=== PATIENT | female | born 1980 | race Caucasian/White ===

== ENCOUNTER 2016-05-12 17:01 | Emergency (ER) | payer OTHER ==
[2016-05-12 17:19] VITALS: BP 156/87
[2016-05-12] MEDS ORDERED: Ondansetron ODT TAB* 4 MG PO ONE (17:35)
--- NOTE | 2016-05-12 17:38 | UC ---
Abdominal Pain Female HPI - HPI Summary HPI Summary: nausea, vomiting and diarrhea for one day--- - History of Current Complaint Chief Complaint: UCGI Stated Complaint: VOMITING, AND DIARRHEA Time Seen by Provider: 05/12/16 17:26 Hx Obtained From: Patient Hx Last Menstrual Period: 05/04/16 ?: No Onset/Duration: Sudden Onset, Lasting Days - 1, Still Present Timing: Constant Severity Initially: Moderate Severity Currently: Moderate Pain Intensity: 4 Pain Scale Used: 0-10 Numeric Location: Diffuse Radiates: No Character: Cramping Aggravating Factor(s): Food Alleviating Factor(s): Nothing Associated Signs and Symptoms: Positive: Nausea, Vomiting, Diarrhea Allergies/Adverse Reactions: Allergies Allergy/AdvReac Type Severity Reaction Status Date / Time Latex Allergy Severe Swelling Verified 05/12/16 17:19 Of Face,Lips,& Throat Venlafaxine [From Effexor] Allergy Intermediate Hives, Verified 05/12/16 17:19 Vomiting Sertraline [From Zoloft] Allergy Mild Hives Verified 05/12/16 17:19 ENVIRONMENTAL Allergy Rash Uncoded 05/26/15 18:29 Home Medications: Home Medications Fluvatriptan* 05/12/16 [History] PMH/Surg Hx/FS Hx/Imm Hx Previously Healthy: No Endocrine History Of: Denies: Diabetes, Thyroid Disease Cardiovascular History Of: Denies: Cardiac Disorders, Hypertension, Pacemaker/ICD, Congestive Heart Failure Respiratory History Of: Reports: COPD - states "something like that" for chronic bronchitis., Asthma, Bronchitis GI/ History Of: Reports: Gastroesophageal Reflux Denies: Ulcer, Renal Disease Psychological History Of: Reports: Anxiety - Surgical History Surgical History: Yes Surgery Procedure, Year, and Place: TUBAL LIGATION, LEEP, NASAL SURGERY AFTER FX ,EAR TUBES x5. T&A, sinus clearing 07/2014, tonsils grew back they were removed 06/26 - Family History Known Family History: Positive: Hypertension Family History: denies family hisotry of migraines, neurological disorders - Social History Occupation: Unemployed Lives: With Family Alcohol Use: None Substance Use Type: None Smoking Status (MU): Current Every Day Smoker Type: Cigarettes Amount Used/How Often: 1/2 PPD Length of Time of Smoking/Using Tobacco: started at age 18 Have You Smoked in the Last Year: Yes Household Exposure Type: Cigarettes - Immunization History Most Recent Influenza Vaccination: 02/2016 Most Recent Tetanus Shot: 2012 Review of Systems Constitutional: Negative Skin: Negative Eyes: Negative ENT: Negative Respiratory: Negative Cardiovascular: Negative Gastrointestinal: Abdominal Pain, Vomiting, Diarrhea Genitourinary: Negative Motor: Negative Neurovascular: Negative Musculoskeletal: Negative Neurological: Negative Psychological: Negative All Other Systems Reviewed And Are Negative: Yes Physical Exam Triage Information Reviewed: Yes Appearance: Ill-Appearing - mild, Pain Distress - mild, Obese Vital Signs: Initial Vital Signs Temp 97.9 F 05/12/16 17:15 Pulse 106 05/12/16 17:15 Resp 24 05/12/16 17:15 BP 156/87 05/12/16 17:15 Pulse Ox 97 05/12/16 17:15 Vital Signs Reviewed: Yes Eye Exam: Normal Eyes: Positive: Conjunctiva Clear ENT Exam: Normal ENT: Positive: Normal ENT inspection, Hearing grossly normal. Negative: Nasal congestion, Nasal drainage, Tonsillar swelling, Tonsillar exudate, Trismus, Muffled/hoarse voice Dental Exam: Other - no teeth Neck exam: Normal Neck: Positive: Supple, Nontender, No Lymphadenopathy Respiratory Exam: Normal Respiratory: Positive: Chest non-tender, Lungs clear, Normal breath sounds, No respiratory distress, No accessory muscle use Cardiovascular Exam: Other Cardiovascular: Positive: No Murmur, Pulses Normal, Brisk Capillary Refill, Tachycardia Abdominal Exam: Other Abdomen Description: Positive: Soft, Other: - genral discomfort. Negative: No Organomegaly, Bruit, CVA Tenderness (R), CVA Tenderness (L), Distended, Guarding , Hernia @, Hepatomegaly, McBurney's Point Tenderness, Peritoneal Signs, Pulsatile Mass, Splenomegaly Bowel Sounds: Positive: Present Musculoskeletal Exam: Normal Musculoskeletal: Positive: Strength Intact, ROM Intact, No Edema Neurological Exam: Normal Neurological: Positive: Alert, Muscle Tone Normal Psychological Exam: Normal Psychological: Positive: Normal Response To Family Skin Exam: Normal Re-Evaluation - Re-Evaluation First Eval Change: Improved - tolerating clear liquids well after zofran--feels better Abd Pain Female Course/Dx - Course Course Of Treatment: zofran clear liquids , advance diet slowly, follow up prn - Differential Dx/Diagnosis Differential Diagnosis: Appendicitis, Diverticulitis, Urinary Tract Infection Provider Diagnoses: gastroenteritis Discharge - Discharge Plan Condition: Stable Disposition: HOME Prescriptions: Ondansetron ODT TAB* [Zofran Odt TAB*] 4 mg PO Q6H PRN #8 tab.odt PRN Reason: vomiting Patient Education Materials: Clear Liquid Diet (ED), Acute Nausea and Vomiting (ED), Acute Diarrhea (ED), Nutrition Tips for Relief of Diarrhea (ED) Referrals: Yakov Amaya MD [Primary Care Provider] - 2 Days
[2016-05-12] MEDS ORDERED: NS 0.9% 1000 ML* 1,000 ML IV ONE (18:19)
== END 2016-05-12 19:34 | disposition home or self-care (01) ==
LOC: UCEAST 17:01
DX: K52.9 Noninfective gastroenteritis and colitis, unspecified (principal); Z88.8 Allergy status to other drugs, medicaments and biological substances; F17.210 Nicotine dependence, cigarettes, uncomplicated
CPT/HCPCS: 81002; 87086; 99201; A9270-GY; G0463

== ENCOUNTER 2017-01-11 07:05 | Emergency (ER) | payer OTHER ==
--- NOTE | 2017-01-11 07:19 | ED ---
Back Pain - HPI Summary HPI Summary: 36 YEAR OLD FEMALE PRESENTS WITH COMPLAINS OF SEVERE MIGRAINE HEADACHE. I WILL SEND HER TO THE ER. - History of Current Complaint Stated Complaint: HEADACHE, BACK SPASMS Time Seen by Provider: 01/11/17 07:18 Hx Last Menstrual Period: 05/04/16 Onset/Duration: Sudden Onset, Lasting Hours Timing: Constant Severity Initially: Moderate Severity Currently: Moderate Pain Scale Used: 0-10 Numeric - 5 Aggravating Symptom(s): Movement - Allergies/Home Medications Allergies/Adverse Reactions: Allergies Allergy/AdvReac Type Severity Reaction Status Date / Time Latex Allergy Severe Swelling Verified 01/11/17 07:20 Of Face,Lips,& Throat Venlafaxine [From Effexor] Allergy Intermediate Hives, Verified 01/11/17 07:20 Vomiting Sertraline [From Zoloft] Allergy Mild Hives Verified 01/11/17 07:20 Gold Allergy Positive Verified 01/11/17 07:20 Allgery Testing Nickel Allergy Positive Verified 01/11/17 07:20 Allergy testing ENVIRONMENTAL Allergy Rash Uncoded 01/11/17 07:20 Home Medications: Home Medications Budesonide/Formote 160/4.5(NF) [Symbicort 160/4.5 (NF)] 1 puff INH BID PRN 01/11 [History Confirmed 01/11/17] Cetirizine* [ZyrTEC 10 MG TAB*] 10 mg PO DAILY 01/11/17 [History Confirmed 01/11] Folic Acid TAB* [Folvite TAB*] 1 mg PO DAILY 01/11/17 [History Confirmed ] LevoCETirizine TAB (NF) [Xyzal TAB (NF)] 5 mg PO DAILY 01/11/17 [History Confirmed 01/11/17] Omeprazole CAP* [Prilosec CAP* 20 MG] 40 mg PO DAILY 01/11/17 [History Confirmed 01/11/17] Ranitidine TAB (NF) [Zantac TAB (NF)] 300 mg PO BID 01/11/17 [History Confirmed 01/11/17] SUMAtriptan TAB* [Imitrex TAB*] 100 mg PO SEE INSTRUCTIONS 01/11/17 [History Confirmed 01/11/17] Simvastatin TAB(NF) [Zocor(NF)] 40 mg PO 1700 01/11/17 [History Confirmed ] hydrOXYzine HCL TAB* [Atarax 25 MG TAB*] 25 mg PO DAILY 01/11/17 [History Confirmed 01/11/17] PMH/Surg Hx/FS Hx/Imm Hx Previously Healthy: Yes Endocrine/Hematology History: Denies: Hx Diabetes, Hx Systemic Lupus Erythematosus, Hx Thyroid Disease Cardiovascular History: Denies: Hx Congestive Heart Failure, Hx Hypertension, Hx Pacemaker/ICD Respiratory History: Reports: Hx Asthma, Hx Chronic Obstructive Pulmonary Disease (COPD) - states "something like that" for chronic bronchitis. GI History: Reports: Other GI Disorders - GERD Denies: Hx Ulcer History: Denies: Hx Dialysis, Hx Renal Disease Musculoskeletal History: Denies: Hx Rheumatoid Arthritis, Hx Scoliosis Sensory History: Denies: Hx Hearing Aid Neurological History: Reports: Hx Headaches, Other Neuro Impairments/Disorders - BIPOLAR, MIGRAINES Psychiatric History: Reports: Hx Anxiety, Hx Substance Abuse - "pot". Denies: Hx Panic Disorder - Cancer History Cancer Type, Location and Year: Cervical CA Hx Chemotherapy: No - Surgical History Surgery Procedure, Year, and Place: TUBAL LIGATION, LEEP, NASAL SURGERY AFTER FX ,EAR TUBES x5. T&A, sinus clearing 07/2014, tonsils grew back they were removed 06/26. LEFT ARM FX RESET 1986 - Immunization History Date of Tetanus Vaccine: UNK Date of Influenza Vaccine: UNK Infectious Disease History: Denies: Hx Clostridium Difficile, Hx Hepatitis, Hx Human Immunodeficiency Virus (HIV), Hx of Known/Suspected MRSA, Hx Shingles, Hx Tuberculosis, Hx Known/ Suspected VRE, Hx Known/Suspected VRSA, History Other Infectious Disease - Family History Known Family History: Positive: Hypertension Family History: denies family hisotry of migraines, neurological disorders - Social History Alcohol Use: None Substance Use Type: Reports: None Smoking Status (MU): Current Every Day Smoker Type: Cigarettes Amount Used/How Often: 1/2 PPD Length of Time of Smoking/Using Tobacco: started at age 18 Have You Smoked in the Last Year: Yes Review of Systems Constitutional: Negative Eyes: Negative ENT: Negative Cardiovascular: Negative Respiratory: Negative Gastrointestinal: Negative Genitourinary: Negative Musculoskeletal: Negative Skin: Negative Positive: Headache Psychological: Normal All Other Systems Reviewed And Are Negative: Yes Physical Exam Triage Information Reviewed: Yes Vital Signs Reviewed: Yes Appearance: Positive: Well-Appearing Skin: Positive: Warm Head/Face: Positive: Normal Head/Face Inspection Eyes: Positive: Normal ENT: Positive: Normal ENT inspection Neck: Positive: Supple Respiratory/Lung Sounds: Positive: Clear to Auscultation Cardiovascular: Positive: Normal Abdomen Description: Positive: Nontender Bowel Sounds: Positive: Present Musculoskeletal: Positive: Normal Neurological: Positive: Normal Back Pain Course/Dx - Diagnoses Provider Diagnoses: Back muscle spasm, Headache Discharge - Discharge Plan Condition: Stable Disposition: HOME Patient Education Materials: Migraine Headache (ED), Acute Headache (ED) Referrals: Yakov Amaya MD [Primary Care Provider] - Additional Instructions: PLEASE GO TO ER FOR INTRACTABLE MIGRAINE.
[2017-01-11 07:30] VITALS: BP 128/68
== END 2017-01-11 07:58 | disposition home or self-care (01) ==
LOC: UCCORT 07:05
DX: G43.909 Migraine, unspecified, not intractable, without status migrainosus (principal); M62.830 Muscle spasm of back; J44.9 Chronic obstructive pulmonary disease, unspecified; K21.9 Gastro-esophageal reflux disease without esophagitis; F41.9 Anxiety disorder, unspecified; F12.90 Cannabis use, unspecified, uncomplicated; F17.210 Nicotine dependence, cigarettes, uncomplicated; Z91.040 Latex allergy status
CPT/HCPCS: 99212; G0463

== ENCOUNTER 2017-01-11 09:17 | Emergency (ER) | payer OTHER ==
[2017-01-11] MEDS ORDERED: NS 0.9% 1000 ML* 1,000 ML IV ONE (09:38)
--- NOTE | 2017-01-11 09:48 | ED ---
Headache - HPI Summary HPI Summary: Pt here w/ [facility] x 1 month. H/o migraines and feels the same but lasting longer than usual. Started as pain in posterior neck, head. Associated sx of nausea w/ vomiting, photosensitivity, and worsening of her chronic LBP (feels muscle spasms). Continuously throbbing and painful headache despite trying sumatriptan and tylenol. Past few days she also reports ST, otalgia, sneezing. Has allergies and myringotomy - no otorrhea to report. Takes cetirizine and singulair daily for allergies - reports these feel like allergies. Also has a baseline cough - smokes and gets bronchitis routinely. Denies asthma, COPD. Used her ventolin HFA this morning with good relief. Has a nebulizer at home she uses as needed also. No complaints today of SOB, difficulty breathing, CP or wheezing. PCOS and sexually active w/o protection. Will asses for . - History Of Current Complaint Chief Complaint: EDHeadache Stated Complaint: HEADACHE COMMING FROM [facility] Time Seen by Provider: 01/11/17 09:26 Hx Obtained From: Patient Hx Last Menstrual Period: 05/04/16 - Allergies/Home Medications Allergies/Adverse Reactions: Allergies Allergy/AdvReac Type Severity Reaction Status Date / Time Latex Allergy Severe Swelling Verified 01/11/17 07:20 Of Face,Lips,& Throat Venlafaxine [From Effexor] Allergy Intermediate Hives, Verified 01/11/17 07:20 Vomiting Sertraline [From Zoloft] Allergy Mild Hives Verified 01/11/17 07:20 Gold Allergy Positive Verified 01/11/17 07:20 Allgery Testing Nickel Allergy Positive Verified 01/11/17 07:20 Allergy testing ENVIRONMENTAL Allergy Rash Uncoded 01/11/17 07:20 PMH/Surg Hx/FS Hx/Imm Hx Previously Healthy: Yes Endocrine/Hematology History: Denies: Hx Anticoagulant Therapy, Hx Blood Disorders, Hx Diabetes, Hx Systemic Lupus Erythematosus, Hx Thyroid Disease, Hx Unexplained Bleeding Cardiovascular History: Denies: Hx Congestive Heart Failure, Hx Hypertension, Hx Pacemaker/ICD Respiratory History: Reports: Hx Asthma, Hx Chronic Obstructive Pulmonary Disease (COPD) - states "something like that" for chronic bronchitis., Hx Seasonal Allergies GI History: Reports: Hx Gastroesophageal Reflux Disease Denies: Hx Ulcer History: Denies: Hx Dialysis, Hx Renal Disease Musculoskeletal History: Denies: Hx Rheumatoid Arthritis, Hx Scoliosis Sensory History: Denies: Hx Hearing Aid Neurological History: Reports: Hx Migraine - sumitriptan per pt, Other Neuro Impairments/Disorders - BIPOLAR, MIGRAINES Psychiatric History: Reports: Hx Anxiety, Hx Substance Abuse - "pot". Denies: Hx Panic Disorder - Cancer History Cancer Type, Location and Year: Cervical CA Hx Chemotherapy: No - Surgical History Surgery Procedure, Year, and Place: TUBAL LIGATION, LEEP, NASAL SURGERY AFTER FX ,EAR TUBES x5. T&A, sinus clearing 07/2014, tonsils grew back they were removed 06/26. LEFT ARM FX RESET 1986 - Immunization History Date of Tetanus Vaccine: UNK Date of Influenza Vaccine: UNK Infectious Disease History: No Infectious Disease History: Denies: Hx Clostridium Difficile, Hx Hepatitis, Hx Human Immunodeficiency Virus (HIV), Hx of Known/Suspected MRSA, Hx Shingles, Hx Tuberculosis, Hx Known/ Suspected VRE, Hx Known/Suspected VRSA, History Other Infectious Disease, Traveled Outside the [place] in Last 30 Days - Family History Known Family History: Positive: Hypertension Family History: denies family hisotry of migraines, neurological disorders - Social History Alcohol Use: None Substance Use Type: Reports: None Smoking Status (MU): Current Every Day Smoker Type: Cigarettes Amount Used/How Often: 1/2 PPD Length of Time of Smoking/Using Tobacco: started at age 18 Have You Smoked in the Last Year: Yes Review of Systems Constitutional: Negative Positive: Fatigue - SLEPT ALL DAY YESTERDAY. Negative: Fever, Chills Positive: Photophobia. Negative: Blurred Vision, Diplopia Positive: Sore Throat, Ear Ache, Other - NASAL CONGESTION Cardiovascular: Negative Negative: Chest Pain Positive: Cough - CHRONIC. Negative: Shortness Of Breath Positive: Vomiting, Nausea. Negative: Abdominal Pain, Diarrhea Negative: burning, dysuria, discharge, frequency, flank pain, hematuria, incontinence, pain, urgency Musculoskeletal: Other - SEE HPI Skin: Negative Positive: Headache - SEE hpi. Negative: Weakness, Paresthesia, Numbness, Syncope, Slurred Speech Positive: Anxious All Other Systems Reviewed And Are Negative: Yes Physical Exam Triage Information Reviewed: Yes Vital Signs On Initial Exam: Initial Vitals Temp Pulse Resp BP Pulse Ox 97.8 F 89 16 139/92 98 01/11/17 09:18 01/11/17 09:18 01/11/17 09:18 01/11/17 09:18 01/11/17 09:18 Vital Signs Reviewed: Yes Appearance: Positive: Pain Distress - lying on Rt side on stretcher in dark upon entrance; alert and awake; cigarette odor in room - 2 friends w/ her; reacts abruptly to hide face when lights are turned on; pleasant and cooperative but appears frustrated with pain, Obese Skin: Positive: Warm, Dry Head/Face: Positive: Normal Head/Face Inspection - NTTP Eyes: Positive: EOMI, [place] - photosensitive, Conjunctiva Clear. Negative: Conjunctiva Inflammed, Discharge ENT: Positive: Hearing grossly normal, Pharynx normal, Nasal congestion, TMs normal - blue tubes present B/L - no otorrhea. Negative: Pharyngeal erythema, Nasal drainage, Tonsillar swelling, Tonsillar exudate, Trismus, Muffled/hoarse voice Neck: Positive: Supple, No Lymphadenopathy, Tenderness @ - paracervical mm TTP Respiratory/Lung Sounds: Positive: Breath Sounds Present, Wheezes - throughout. Negative: Rales, Rhonchi, Stridor, Unable to speak in full sentences Cardiovascular: Positive: Normal, RRR, S1, S2. Negative: Murmur, Rub Abdomen Description: Positive: Nontender, No Organomegaly, Soft Bowel Sounds: Positive: Present Musculoskeletal: Positive: Normal, Strength/ROM Intact Neurological: Positive: Normal, Sensory/Motor Intact, Alert, Oriented to Person Place, Time, CN Intact II-III Psychiatric: Positive: Normal Diagnostics - Vital Signs Vital Signs Temp Pulse Resp BP Pulse Ox 01/11/17 09:18 97.8 F 89 16 139/92 98 - Laboratory Result Diagrams: 01/11/17 10:47 01/11/17 10:47 Lab Statement: Any lab studies that have been ordered have been reviewed, and results considered in the medical decision making process. Re-Evaluation - Re-Evaluation First Eval Change: Improved - nausea resolved - pain improving but still present - requesting something additional for pain - would like to try diazepam and then go home Headache Course/Dx - Diagnoses Provider Diagnoses: Migraine Discharge - Discharge Plan Condition: Stable Disposition: HOME Patient Education Materials: Migraine Headache (ED) Referrals: Yakov Amaya MD [Primary Care Provider] - Additional Instructions: Rest and stay hydrated - water, chicken broth, gatorade, etc Reduce or quit smoking as tolerated to aid in recovery of migraine Keep a head diary and bring this to PCP - record hours of sleep, stressful events, caffeine intake (ie., coffee, tea, soda, iced tea, chocolate), alcohol intake, cigarette intake, water intake, exposure to chemicals such as cloud administrator, perfumes, etc - this will help you and your PCP identify triggers Follow-up with PCP to discuss migraine prevention - you may address lifestyle changes as well as potential medications for prevention
[2017-01-11 11:02] LABS: Hematocrit 33 % (35-47); Hemoglobin 11.3 g/dl (12.0-16.0); Mean Corpuscular HGB Conc 34 g/dl (31-36); Mean Corpuscular Hemoglobin 30 pg (27-31); Mean Corpuscular Volume 89 fL (80-97); Mean Platelet Volume 9 um3 (7.4-10.4); Red Blood Count 3.76 10^6/ul (4.0-5.4); Red Cell Distribution Width 15 % (10.5-15); White Blood Count 8.3 10^3/ul (3.5-10.8)
[2017-01-11 11:23] LABS: ALT 18 U/L (7-52); AST 16 U/L (13-39); Albumin 3.8 g/dL (3.2-5.2); Alkaline Phosphatase 77 U/L (34-104); Anion Gap 3 mmol/L (2-11); Blood Urea Nitrogen 12 mg/dL (6-24); CO2 Carbon Dioxide 26 mmol/L (22-32); Calcium 9.1 mg/dL (8.6-10.3); Chloride 109 mmol/L (101-111); EGFR African American 139.1 (>60); EGFR Non-African American 108.2 (>60); Globulin 2.5 g/dL (2-4); Glucose 99 mg/dL (70-100); Potassium 4.1 mmol/L (3.5-5.0); Sodium 138 mmol/L (133-145); Total Protein 6.3 g/dL (6.4-8.9)
[2017-01-11] MEDS ORDERED: Ondansetron INJ* 2 MG/ML VIAL IV ONE (11:30)
[2017-01-11] MEDS ORDERED: diPHENhydraMINE IV* 50 MG/ML 1 ml VIAL (BENADRYL) IV ONE (11:30)
[2017-01-11] MEDS ORDERED: Ketorolac INJ* 30 MG/ML 1 ML VIAL IV PUSH ONE (11:30)
[2017-01-11 12:05] LABS: Mono Internal Control QC Line Present
[2017-01-11] MEDS ORDERED: Diazepam SYRINGE* 5 MG/ML SYRINGE IV ONE (13:00)
[2017-01-11 14:42] VITALS: BP 152/84
== END 2017-01-11 14:42 | disposition home or self-care (01) ==
LOC: ED 09:17
DX: G43.909 Migraine, unspecified, not intractable, without status migrainosus (principal); F17.200 Nicotine dependence, unspecified, uncomplicated; F31.9 Bipolar disorder, unspecified; K21.9 Gastro-esophageal reflux disease without esophagitis
CPT/HCPCS: 36415; 80053; 83735; 84443; 84702; 85025; 86308; 87651; 99282; J1200; J1885; J2405; J3360

== ENCOUNTER 2017-03-23 08:39 | Day surgery (SDC) | payer OTHER ==
[~2017-03-23 08:39] MED LIST: Acetaminophen TAB* 325 MG PO ONE; Buffered Lidocaine 0.9% SYRIN* 5 ML/SYR SYRINGE INTRADERM ONE; Famotidine IV* 10 MG/ML 2 ML (20 mg) IV ONE; Ketorolac INJ* 30 MG/ML 1 ML VIAL ONE; Lidocaine 2% PF * 5 ML VIAL ONE; Midazolam* 1 MG/ML 2 ML VIAL (2 MG) ONE; Ondansetron INJ* 2 MG/ML VIAL ONE; Propofol* 10 MG/ML 20 ML BTL IV PUSH ONE; fentaNYL* 50 MCG/ML 2 ML VIAL (100 MCG VIAL) ONE
[2017-03-23] MEDS ORDERED: Acetaminophen TAB* 325 MG ONE (08:52)
[2017-03-23] MEDS ORDERED: Famotidine IV* 10 MG/ML 2 ML (20 mg) ONE (08:52)
[2017-03-23] MEDS ORDERED: ceFAZolin 2 GM PREMIX (*) 2 GM/50 ML BAG IVPB ONE (08:52)
[2017-03-23] MEDS ORDERED: Buffered Lidocaine 0.9% SYRIN* 5 ML/SYR SYRINGE ONE (08:53)
[2017-03-23] MEDS ORDERED: Ibuprofen TAB* 600 MG PO PRN (10:09)
[2017-03-23] MEDS ORDERED: Levalbuterol 0.63MG/3ML NEB* UNIT OF USE INH PRN (10:09)
[2017-03-23] MEDS ORDERED: oxyCODONE TAB* 5 MG TAB PO PRN (10:09)
[2017-03-23] MEDS ORDERED: HYDROmorphone INJ* 1 MG/ML CARPUJECT SYRINGE IV PRN (10:09)
[2017-03-23] MEDS ORDERED: Scopolamine 1.5 mg* PATCH TRANSDERM PRN (10:09)
[2017-03-23] MEDS ORDERED: HYDROcodone/ACETAMIN 5-325 MG* 1 TAB PO PRN (10:09)
[2017-03-23] MEDS ORDERED: Nalbuphine* 20 MG/ML 1 ML VIAL IV PRN (10:09)
[2017-03-23] MEDS ORDERED: Bupivacaine 0.25% SDV* 30 ML ONE (10:11)
[2017-03-23] MEDS ORDERED: Lidocaine 1% MPF wEPI 200,000* 30 ML SDV ONE (10:11)
[2017-03-23] MEDS ORDERED: Levalbuterol HFA INHALER* 1 PUFF MDI ONE (11:25)
[2017-03-23] MEDS ORDERED: Phenylephrine IV* 40 MCG/ML 10 ML SYRINGE ONE (11:52)
[2017-03-23] MEDS ORDERED: fentaNYL* 50 MCG/ML 2 ML VIAL (100 MCG VIAL) ONE ×3 (12:01→13:55)
[2017-03-23] MEDS ORDERED: hydrALAZINE IV* 20 MG/ML VIAL ONE (13:34)
[2017-03-23] MEDS: fentaNYL* 50 MCG/ML 2 ML VIAL (100 MCG VIAL) IV PRN ×2 (14:00→14:15)
[2017-03-23] MEDS ORDERED: oxyCODONE/Acetamin 5/325 MG* TAB ONE (14:51)
[2017-03-23] MEDS: oxyCODONE/Acetamin 5/325 MG* TAB PO PRN ×2 (14:51→14:52)
[2017-03-23 16:08] VITALS: BP 126/72
--- NOTE | 2017-03-24 09:49 | OP ---
DATE OF OPERATION: 03/23/17 - [facility] DATE OF : 84 SURGEON: Abimael Weir MD DISCHARGE PLANNER: CRYSTAL Sotuh ANESTHESIOLOGIST: Dr. Paulette Wright. ANESTHESIA: General. PRE-OP DIAGNOSES: 1. Left dorsal wrist ganglion cyst. 2. Left wrist De Quervain's tenosynovitis. 3. Left carpal tunnel syndrome. 4. Left wrist pain, potential scapholunate interosseous ligament injury. POST-OP DIAGNOSES: 1. Left dorsal wrist ganglion cyst. 2. Left wrist De Quervain's tenosynovitis. 3. Left carpal tunnel syndrome. 4. Left wrist synovitis with an intact scapholunate interosseous ligament. OPERATIVE PROCEDURE: 1. Left wrist arthroscopy with synovectomy 2. Left DeQuervain's release 3. Left carpal tunnel release 4. Left dorsal wrist ganglion cyst excision. INDICATIONS: I have been following Martina now for quite some time. She has had persistent pain. She has had injections. She has had extensive nonoperative treatment. She has a cyst on MRI. Her clinical exam is very consistent with De Quervain's tenosynovitis. She had electrodiagnostic studies which were negative; however, she continues to complain of clinical symptoms of carpal tunnel syndrome involving the distal radial three digits and not the ulnar digits. On MRI, there was some questionable insufficiency of the scapholunate interosseous ligament. I talked to her that really the only thing left to do would be to scope the wrist and do a synovectomy and assess arthroscopically the scapholunate interosseous ligament. I would also excise the dorsal wrist ganglion cyst and release the tendons and do the carpal tunnel release at the same time. She very much wanted to proceed. ESTIMATED BLOOD LOSS: 5 mL. COMPLICATIONS: None. FINDINGS: See above and below. DESCRIPTION OF PROCEDURE: Martina was seen in the preoperative holding area The correct site and side of the procedure were identified. We came back to the operating room. The arm was prepped and draped in the usual fashion. A time- out was performed. I began by placing the arm in the [employer] [place]. I was then going to commence the arthroscopy; however, I did not have the right camera, so I went ahead and took the arm out of the arthroscopy tower. It was exsanguinated with the Esmarch and then the tourniquet inflated to 250 mmHg. I then made a 2 to 3 cm incision in the standard location for an ulnar carpal tunnel release; dissection was carried down. Ulnar fascia was split longitudinally. The transverse carpal ligament was released just off the radial aspect of the hamate. The release was completed distally and proximally with the tenotomy scissors. Once there was absolutely no compression on the nerve, I went ahead and irrigated out the wound. The skin was closed with 3-0 Monocryl suture. I then made a 2 cm transverse incision just proximal to the radial styloid. Full- thickness flaps were raised off of the first dorsal compartment tendon sheath. Sheath was incised along the dorsal aspect of the first dorsal compartment. The release was extended proximally and distally with the tenotomy scissor taking care to protect the radial sensory nerve. Once the tendons were completely decompressed and the sheath was completely released, I irrigated out that wound and the skin was closed with a 3-0 Monocryl subcuticular suture. I then made a lazy-S incision over the dorsum of the wrist. Dissection was carried down. I came in the interval between the second and fourth extensor tendons. The dorsal wrist ganglion was identified. It was dissected back to the dorsal wrist capsule, and margins were developed and it was amputated just at the level of the wrist capsule. It was coming off of the dorsal scapholunate joint. The stock of the cyst was cauterized with a Bovie. At this point we had the camera, so I placed her back in the traction tower. A 3-4 portal was developed with the 11 blade followed by the mosquito, and then the blunt trocar was placed. Camera was placed in 3-4 portal. The 4-5 portal and then the 6-R portals were developed in a similar fashion. Instruments were placed in these two portals. There was quite a bit of synovitis. I went ahead and took the 2.5 mm shaver and excised all of that dorsal synovitis. I used the probe and examined the TFCC. It was thin, but there was no full-thickness tear of the TFCC. The cartilage surface was all intact. I then developed a radial and ulnar mid carpal portals through my dorsal wrist ganglion cyst incision. It did not look like there was instability in the scapholunate or the triquetral joints. I, therefore, withdrew the camera. The cyst incision was irrigated out. All the wounds were closed with 3-0 Monocryl suture. The wounds were infiltrated with Marcaine. They were dressed with Xeroform, 4x4, sterile Webril, and a cockup wrist splint was applied. The tourniquet was deflated and the hand pinked up immediately. She was taken to the recovery room in stable condition. [id number]/[facility] #: [id number] MARYANN
[2017-03-26] MEDS ORDERED: Scopolamine PATCH Remove* 1 NOTE MISC PATCH OFF ONE (10:10)
== END 2017-03-23 15:25 | disposition home or self-care (01) ==
LOC: OR 08:39
PROVIDERS: ATTEND Orthopaedic Surgery Hand Surgery
DX: M67.432 Ganglion, left wrist (principal); M65.4 Radial styloid tenosynovitis [de Quervain]; G56.02 Carpal tunnel syndrome, left upper limb; M65.832 Other synovitis and tenosynovitis, left forearm; J44.9 Chronic obstructive pulmonary disease, unspecified; F17.200 Nicotine dependence, unspecified, uncomplicated; K21.9 Gastro-esophageal reflux disease without esophagitis; E11.9 Type 2 diabetes mellitus without complications; Z79.84 Long term (current) use of oral hypoglycemic drugs; G43.909 Migraine, unspecified, not intractable, without status migrainosus; F31.9 Bipolar disorder, unspecified
CPT/HCPCS: 88304; A9270-GY; J0360; J0690; J1885; J2001; J2250; J2405; J2704; J3010

== ENCOUNTER 2017-06-24 07:36 | Emergency (ER) | payer OTHER ==
[2017-06-24 08:58] VITALS: BP 133/77
--- NOTE | 2017-06-24 09:28 | UC ---
Respiratory Complaint HPI - HPI Summary HPI Summary: Cough and congestion for about two days. Both housemates have similar symptoms. SHe has hx of asthma. NO known fever. - History of Current Complaint Chief Complaint: UCRespiratory Stated Complaint: COUGH CHILLS/SWEATS Time Seen by Provider: 06/24/17 08:54 Hx Obtained From: Patient Hx Last Menstrual Period: 06/24/17 Onset/Duration: Gradual Onset, Lasting Days Timing: Constant Severity Initially: Moderate Severity Currently: Moderate Pain Intensity: 9 Character: Cough: Nonproductive Aggravating Factors: Deep Breaths, Recumbent Position Alleviating Factors: Upright Position, Spontaneous Resolution Associated Signs And Symptoms: Positive: Chills, Wheezing, URI, Nasal Congestion , Hoarseness - Allergies/Home Medications Allergies/Adverse Reactions: Allergies Allergy/AdvReac Type Severity Reaction Status Date / Time MS Latex [Latex] Allergy Severe Swelling Verified 06/24/17 08:48 Of Face,Lips,& Throat MS Venlafaxine [From Effexor] Allergy Intermediate Hives, Verified 06/24/17 08: 48 Vomiting MS Sertraline [From Zoloft] Allergy Mild Hives Verified 06/24/17 08:48 MS Gold [Gold] Allergy Positive Verified 06/24/17 08:48 Allgery Testing MS Nickel [Nickel] Allergy Positive Verified 06/24/17 08:48 Allergy testing ENVIRONMENTAL Allergy Rash Uncoded 06/24/17 08:48 PMH/Surg Hx/FS Hx/Imm Hx Previously Healthy: No - asthma, PCOS Other History Of: Negative For: Anticoagulant Therapy - Surgical History Surgical History: Yes Surgery Procedure, Year, and Place: TUBAL LIGATION, LEEP, NASAL SURGERY AFTER FX ,EAR TUBES x5. T&A, sinus clearing 07/2014, tonsils grew back they were removed 06/26. LEFT ARM FX RESET 1986. L wrist fx. 3 D&C'S - Family History Known Family History: Positive: Hypertension Family History: denies family hisotry of migraines, neurological disorders - Social History Lives: With Family Alcohol Use: None Substance Use Type: None Smoking Status (MU): Heavy Every Day Tobacco Smoker Type: Cigarettes Amount Used/How Often: 1/2 PPD X 13 YEARS Length of Time of Smoking/Using Tobacco: started at age 18 Have You Smoked in the Last Year: Yes Household Exposure Type: Cigarettes - Immunization History Most Recent Influenza Vaccination: Not the 2016/2017 Season Most Recent Tetanus Shot: 2012 Review of Systems ENT: Sinus Congestion Respiratory: Cough All Other Systems Reviewed And Are Negative: Yes Physical Exam Triage Information Reviewed: Yes Appearance: Well-Appearing, No Pain Distress, Well-Nourished Vital Signs: Initial Vital Signs Temp 99.5 F 06/24/17 08:51 Pulse 101 06/24/17 08:51 Resp 18 06/24/17 08:51 BP 133/77 06/24/17 08:51 Pulse Ox 99 06/24/17 08:51 Vital Signs Reviewed: Yes Eye Exam: Normal Eyes: Positive: Conjunctiva Clear ENT: Positive: Normal ENT inspection, Pharynx normal, Nasal congestion, TMs normal, Uvula midline. Negative: TM bulging, TM dull, TM red, Tonsillar swelling, Tonsillar exudate, Trismus, Muffled voice, Hoarse voice, Dental tenderness Neck: Positive: Supple, Nontender, No Lymphadenopathy. Negative: Nuchal Rigidity Respiratory: Positive: No respiratory distress, No accessory muscle use, Rhonchi , Wheezing. Negative: Respiratory distress, Decreased breath sounds, Accessory muscle use, Crackles Cardiovascular: Positive: No Murmur, Pulses Normal. Negative: Tachycardia Abdomen Description: Positive: No Organomegaly, Soft. Negative: Distended, Guarding Musculoskeletal: Positive: ROM Intact, No Edema Neurological: Positive: Alert, Muscle Tone Normal. Negative: Fatigued Psychological: Positive: Age Appropriate Behavior Skin: Negative: rashes UC Diagnostic Evaluation - Laboratory O2 Sat by Pulse Oximetry: 99 Respiratory Course/Dx - Course Course Of Treatment: NO respirtory distress besides dry cough. She is talking in full sentences. THere is wheezing but no clinical signs of pneumonia two days into this URI. She has asthma and has wheezing. We will try prednisone. - Differential Dx/Diagnosis Provider Diagnoses: viral URI Discharge - Discharge Plan Condition: Good Disposition: HOME Prescriptions: guaiFENesin/CODIEN 100MG-10MG* [Robitussin AC 100Mg-10Mg*] 10 ml PO TID PRN # 100 udc MDD 30 PRN Reason: Cough Oseltamivir CAP* [Tamiflu CAP*] 75 mg PO BID #10 cap predniSONE TAB* [Deltasone TAB*] 40 mg PO DAILY #10 tab Patient Education Materials: Influenza (ED) Referrals: Yakov Amaya MD [Primary Care Provider] -
== END 2017-06-24 10:21 | disposition home or self-care (01) ==
LOC: UCCORT 07:36
DX: J06.9 Acute upper respiratory infection, unspecified (principal); F17.210 Nicotine dependence, cigarettes, uncomplicated; J45.909 Unspecified asthma, uncomplicated
CPT/HCPCS: 87502; 99212; G0463

== ENCOUNTER 2017-07-06 14:38 | Emergency (ER) | payer OTHER ==
[2017-07-06 15:11] VITALS: BP 111/69
[2017-07-06] MEDS ORDERED: Acetaminophen TAB* 325 MG PO ONE (15:31)
--- NOTE | 2017-07-06 16:03 | UC ---
FLU HPI - HPI Summary HPI Summary: Pt c/o continued fever, nasal congestion cough, sinus pressure and pain X 2 weeks. Pt was diagnosed 2 weeks ago with flu. - History of Current Complaint Chief Complaint: UCGeneralIllness Stated Complaint: COUGH SORE THROAT DIARRHEA Time Seen by Provider: 07/06/17 15:18 Hx Obtained From: Patient Hx Last Menstrual Period: 06/24/17 ?: No Onset/Duration: Gradual Onset, Lasting Weeks, Still Present, Worse Since - onset Severity Currently: Moderate Severity Initially: Mild Pain Intensity: 9 Associated Signs & Symptoms: Positive: Fever, Cough, Nasal Congestion Related Hx: Possible Flu/Infectious Exposure - Risk Factors Influenza Risk Factors: Negative - Allergy/Home Medications Allergies/Adverse Reactions: Allergies Allergy/AdvReac Type Severity Reaction Status Date / Time latex Allergy Swelling Verified 07/06/17 15:27 Of Face,Lips,& Throat nickel Allergy POSITIVE Verified 07/06/17 15:27 ALLERGY TESTING sertraline Allergy Hives Verified 07/06/17 15:27 venlafaxine Allergy Hives, Verified 07/06/17 15:27 Vomiting ENVIRONMENTAL Allergy Rash Uncoded 07/06/17 15:27 GOLD Allergy TESTED Uncoded 07/06/17 15:27 POSITIVE PMH/Surg Hx/FS Hx/Imm Hx Previously Healthy: Yes Other History Of: Negative For: Anticoagulant Therapy - Surgical History Surgical History: Yes Surgery Procedure, Year, and Place: TUBAL LIGATION, LEEP, NASAL SURGERY AFTER FX ,EAR TUBES x5. T&A, sinus clearing 07/2014, tonsils grew back they were removed 06/26. LEFT ARM FX RESET 1986. L wrist fx. 3 D&C'S - Family History Known Family History: Positive: Hypertension Family History: denies family hisotry of migraines, neurological disorders - Social History Occupation: Unemployed Lives: With Family Alcohol Use: None Substance Use Type: None Smoking Status (MU): Heavy Every Day Tobacco Smoker Type: Cigarettes Amount Used/How Often: 1/2 PPD X 13 YEARS Length of Time of Smoking/Using Tobacco: started at age 18 Have You Smoked in the Last Year: Yes Household Exposure Type: Cigarettes - Immunization History Most Recent Influenza Vaccination: Not the 2017/2017 Season Most Recent Tetanus Shot: 2012 Review of Systems Constitutional: Fever, Chills, Fatigue Skin: Negative Eyes: Negative ENT: Sinus Congestion, Sinus Pain/Tenderness Respiratory: Cough Cardiovascular: Negative, Palpitations Gastrointestinal: Negative Genitourinary: Negative Motor: Negative Neurovascular: Negative Musculoskeletal: Negative Neurological: Headache Psychological: Negative Is Patient Immunocompromised?: No All Other Systems Reviewed And Are Negative: Yes Physical Exam Triage Information Reviewed: Yes Appearance: Ill-Appearing Vital Signs: Initial Vital Signs Temp 101.1 F 07/06/17 15:04 Pulse 86 07/06/17 15:04 Resp 20 07/06/17 15:04 BP 111/69 07/06/17 15:04 Pulse Ox 100 07/06/17 15:04 Vital Signs Reviewed: Yes Eye Exam: Normal ENT Exam: Other ENT: Positive: Nasal congestion, Sinus tenderness Dental: Positive: Other: - all teeth pulled, Neck exam: Normal Respiratory Exam: Normal Cardiovascular Exam: Normal Musculoskeletal Exam: Normal Neurological Exam: Normal Psychological Exam: Normal Skin Exam: Normal Flu Course/Dx - Differential Dx/Diagnosis Differential Diagnosis/HQI/PQRI: Influenza, Other - sinusitis Provider Diagnoses: sinusitis Discharge - Discharge Plan Condition: Stable Disposition: HOME Prescriptions: Amoxicillin PO (*) [Amoxicillin 875 MG (*)] 875 mg PO Q12H #20 tab Patient Education Materials: Sinusitis (ED) Referrals: Yakov Amaya MD [Primary Care Provider] - If Needed
== END 2017-07-06 16:04 | disposition home or self-care (01) ==
LOC: UCCORT 14:38
DX: J32.9 Chronic sinusitis, unspecified (principal); Z91.040 Latex allergy status; Z88.8 Allergy status to other drugs, medicaments and biological substances; Z91.048 Other nonmedicinal substance allergy status; F17.210 Nicotine dependence, cigarettes, uncomplicated
CPT/HCPCS: 99212; A9270-GY; G0463

== ENCOUNTER 2017-08-22 16:15 | Emergency (ER) | payer OTHER ==
[2017-08-22] MEDS ORDERED: predniSONE TAB* 20 MG PO ONE (17:42)
[2017-08-22] MEDS ORDERED: Albuterol/Ipratropium NEB.SOL* Albuterol 2.5 MG/Ipratropium 0.5 MG 3 ML INH ONE (17:43)
[2017-08-22 18:12] VITALS: BP 133/68
--- NOTE | 2017-08-22 18:20 | UC ---
Respiratory Complaint HPI - HPI Summary HPI Summary: c/o SOB and wheezing with chills and feeling hot and cold and facial pain with nasal congestion for several days. She continues to smoke about 10 cig a day and has quit "a million times". She has appt with PCP on 08-25-17. - History of Current Complaint Chief Complaint: UCGeneralIllness Stated Complaint: BODY ACHES/CHILLS Time Seen by Provider: 08/22/17 16:44 Hx Obtained From: Patient Hx Last Menstrual Period: MIRENA ?: No Onset/Duration: Gradual Onset, Lasting Days Severity Initially: Moderate Severity Currently: Severe Pain Intensity: 9 Alleviating Factors: Nothing Associated Signs And Symptoms: Positive: Wheezing, Nasal Congestion, Sinus Discomfort - Risk Factors Pulmonary Embolism Risk Factors: Negative Cardiac Risk Factors: Smoking Tuberculosis Risk Factors: Negative - Allergies/Home Medications Allergies/Adverse Reactions: Allergies Allergy/AdvReac Type Severity Reaction Status Date / Time latex Allergy Swelling Verified 08/22/17 16:35 Of Face,Lips,& Throat nickel Allergy POSITIVE Verified 08/22/17 16:35 ALLERGY TESTING sertraline Allergy Hives Verified 08/22/17 16:35 venlafaxine Allergy Hives, Verified 08/22/17 16:35 Vomiting ENVIRONMENTAL Allergy Rash Uncoded 08/22/17 16:35 GOLD Allergy TESTED Uncoded 08/22/17 16:35 POSITIVE Home Medications: Home Medications Guaifen/Phenyleph/Acetaminophn [Mucinex Fast-Max Cold & S] 2 tab PO DAILY PRN [History Confirmed 08/22/17] Levonorgestrel (Iud) [Mirena IUD] 20 mcg IU SEE INSTRUCTIONS 08/22/17 [History Confirmed 08/22/17] PMH/Surg Hx/FS Hx/Imm Hx Previously Healthy: Yes Respiratory History: Asthma Psychological History: Anxiety Other History Of: Negative For: Anticoagulant Therapy - Surgical History Surgical History: Yes Surgery Procedure, Year, and Place: TUBAL LIGATION, LEEP, NASAL SURGERY AFTER FX ,EAR TUBES x5. T&A, sinus clearing 07/2014, tonsils grew back they were removed 06/26. LEFT ARM FX RESET 1986. L wrist fx. 3 D&C'S - Family History Known Family History: Positive: Hypertension Family History: denies family hisotry of migraines, neurological disorders - Social History Alcohol Use: None Substance Use Type: None Smoking Status (MU): Heavy Every Day Tobacco Smoker Type: Cigarettes Amount Used/How Often: 1/2 PPD X 19 YEARS Length of Time of Smoking/Using Tobacco: started at age 18 Have You Smoked in the Last Year: Yes Household Exposure Type: Cigarettes - Immunization History Most Recent Influenza Vaccination: Not the 2016/2017 Season Most Recent Tetanus Shot: 2012 Review of Systems Constitutional: Chills, Fatigue ENT: Nasal Discharge, Sinus Congestion, Sinus Pain/Tenderness Respiratory: Shortness Of Breath, Cough Gastrointestinal: Nausea All Other Systems Reviewed And Are Negative: Yes Physical Exam Triage Information Reviewed: Yes Appearance: Ill-Appearing, Obese Vital Signs: Initial Vital Signs Temp 98.8 F 08/22/17 16:37 Pulse 99 08/22/17 16:37 Resp 22 08/22/17 16:37 BP 130/80 08/22/17 16:37 Pulse Ox 98 08/22/17 16:37 Vital Signs Reviewed: Yes Eyes: Positive: Conjunctiva Clear ENT: Positive: Pharyngeal erythema, Nasal congestion, Nasal drainage, Sinus tenderness Neck: Positive: Supple, Nontender, No Lymphadenopathy Respiratory: Positive: Chest non-tender, Rhonchi, Wheezing Cardiovascular: Positive: RRR, No Murmur, Pulses Normal Diagnostic Evaluation - Laboratory O2 Sat by Pulse Oximetry: 98 Respiratory Course/Dx - Course Course Of Treatment: patient started on duoneb and prednisone at , on repeat auscultation lungs were clear, patient had clinical improvement. Instructed to take medications as prescribed and added atrovent to inhaler regimen. F/u with PCP next week as scheduled - Differential Dx/Diagnosis Provider Diagnoses: Exacerbation Bronchial asthma. Acute frontal and maxillary sinusitis. Tobacco abuse Discharge - Sign-Out/Discharge Documenting (check all that apply): Discharge - Discharge Plan Condition: Stable Disposition: HOME Prescriptions: Amoxicillin PO (*) [Amoxicillin 875 MG (*)] 875 mg PO BID 10 Days #20 tab Ipratropium 0.5MG/2.5ML NEB* [Atrovent 0.5 MG NEB.DMITRY*] 0.5 mg INH Q4H PRN #100 meb.soln PRN Reason: Sob/Wheezing Ipratropium HFA INHALER(NF) [Atrovent Hfa Inhaler(NF)] 1 puff INH Q6H #1 mdi predniSONE TAB* [Deltasone TAB*] 60 mg PO DAILY 5 Days #15 tab Patient Education Materials: How to Stop Smoking (ED), Asthma (ED), Rhinosinusitis (ED) Referrals: Yakov Amaya MD [Primary Care Provider] - - Billing Disposition and Condition Condition: STABLE Disposition: HOME
== END 2017-08-22 18:19 | disposition home or self-care (01) ==
LOC: UCCORT 16:15
DX: J45.901 Unspecified asthma with (acute) exacerbation (principal); J01.00 Acute maxillary sinusitis, unspecified; J01.10 Acute frontal sinusitis, unspecified; F17.210 Nicotine dependence, cigarettes, uncomplicated; Z88.8 Allergy status to other drugs, medicaments and biological substances
CPT/HCPCS: 87502; 99213; A9270-GY; G0463; J7512

== ENCOUNTER 2017-11-25 14:19 | Emergency (ER) | payer OTHER ==
[2017-11-25 14:48] VITALS: BP 134/82
--- NOTE | 2017-11-25 15:00 | UC ---
Neck Pain HPI - HPI Summary HPI Summary: Patient is a 37-year-old female with a 2 day history of severe left lateral neck pain. Radiates to her left shoulder and down into her left arm. Denies any neck injury. She has no headache. - History of Current Complaint Chief Complaint: UCBackPain Stated Complaint: NECK PAIN Time Seen by Provider: 11/25/17 14:53 Hx Obtained From: Patient Hx Last Menstrual Period: MIRENA Timing: Constant Onset/Duration: Gradual Onset, Lasting Days Severity: Severe Pain Intensity: 9 Pain Scale Used: 0-10 Numeric Location: Discrete At: - l trapezius, Radiates To: - left shoulder and upper arm Character: Aching, Stiff, Spasmotic Aggravating Factors: Position, Movement Alleviating Factors: Nothing - Allergies/Home Medications Allergies/Adverse Reactions: Allergies Allergy/AdvReac Type Severity Reaction Status Date / Time latex Allergy Swelling Verified 11/25/17 14:48 Of Face,Lips,& Throat nickel Allergy POSITIVE Verified 11/25/17 14:48 ALLERGY TESTING sertraline Allergy Hives Verified 11/25/17 14:48 venlafaxine Allergy Hives, Verified 11/25/17 14:48 Vomiting ENVIRONMENTAL Allergy Rash Uncoded 11/25/17 14:48 GOLD Allergy TESTED Uncoded 11/25/17 14:48 POSITIVE Home Medications: Home Medications metFORMIN* [Glucophage 500 MG TAB *] 500 mg PO BID 11/25/17 [History Confirmed 11/25/17] PMH/Surg Hx/FS Hx/Imm Hx Previously Healthy: Yes - PCOS Neurological History: Migraine Other History Of: Negative For: Anticoagulant Therapy - Surgical History Surgical History: Yes Surgery Procedure, Year, and Place: TUBAL LIGATION, LEEP, NASAL SURGERY AFTER FX ,EAR TUBES x5. T&A, sinus clearing 07/2014, tonsils grew back they were removed 06/26. LEFT ARM FX RESET 1986. L wrist fx. 3 D&C'S - Family History Known Family History: Positive: Hypertension Family History: denies family hisotry of migraines, neurological disorders - Social History Alcohol Use: None Substance Use Type: None Smoking Status (MU): Heavy Every Day Tobacco Smoker Type: Cigarettes Amount Used/How Often: 1/2 PPD X 19 YEARS Length of Time of Smoking/Using Tobacco: started at age 18 Have You Smoked in the Last Year: Yes Household Exposure Type: Cigarettes - Immunization History Most Recent Influenza Vaccination: Not the Season Most Recent Tetanus Shot: 2013 Review Of Systems Constitutional: Positive: Negative Skin: Positive: Negative Eyes: Positive: Negative ENT: Positive: Negative Respiratory: Positive: Negative Cardiovascular: Positive: Negative Gastrointestinal: Positive: Negative Genitourinary: Positive: Negative Musculoskeletal: Positive: Myalgia Neurological: Positive: Negative Psychological: Positive: Negative All Other Systems Reviewed And Are Negative: Yes Physical Exam Triage Information Reviewed: Yes Appearance: Well-Appearing, No Pain Distress, Well-Nourished Vital Signs: Initial Vital Signs Temp 99.2 F 11/25/17 14:43 Pulse 97 11/25/17 14:43 Resp 18 11/25/17 14:43 BP 134/82 11/25/17 14:43 Pulse Ox 99 11/25/17 14:43 Vital Signs Reviewed: Yes Eye Exam: Normal ENT: Positive: Hearing grossly normal. Negative: Pharyngeal erythema, Nasal drainage, Tonsillar swelling, Tonsillar exudate, Trismus, Muffled voice, Dental tenderness Neck: Positive: No Lymphadenopathy, Tenderness @ - left trap. Negative: Supple - limited ROM Respiratory: Positive: Lungs clear, Normal breath sounds, No respiratory distress, No accessory muscle use Cardiovascular: Positive: RRR, No Murmur Musculoskeletal: Positive: ROM Intact, No Edema Neurological: Positive: Alert, Other: - strength intact, normal gait Psychological Exam: Normal Skin Exam: Normal Diagnostics - Radiology No standard instances Xray Interpretation: No Acute Changes - loss of lordosis Radiology Interpretation Completed By: Radiologist Neck Pain Course/Dx - Course Course Of Treatment: refuses soft collar - Differential Dx/Diagnosis Provider Diagnoses: cervical stain/left trapezius strain. non discogenic left cervical radiculopathy Discharge - Sign-Out/Discharge Documenting (check all that apply): Patient Departure - Discharge Plan Condition: Stable Disposition: HOME Prescriptions: Cyclobenzaprine TAB* [Flexeril TAB*] 5 mg PO TID PRN #15 tab PRN Reason: Spasms HYDROcodone/ACETAMIN 5-325 MG* [[place] 5-325 TAB*] 1 tab PO Q4H PRN #10 tab MDD 2 PRN Reason: Pain Ibuprofen TAB* [Motrin TAB*] 600 mg PO Q6H PRN #40 tab PRN Reason: Pain Patient Education Materials: Cervical Radiculopathy (ED) Referrals: Kyle Torres MD [Primary Care Provider] - 1 Week Additional Instructions: pt consult - Billing Disposition and Condition Condition: STABLE Disposition: Home
[2017-11-25] MEDS ORDERED: Ketorolac INJ* 30 MG/ML 1 ML VIAL IM ONE (15:08)
--- NOTE | 2017-11-25 15:53 | RAD ---
INDICATION: Atraumatic neck pain COMPARISON: Cervical spine April 17, 2016 TECHNIQUE: Routine five-view imaging was performed FINDINGS: Bones: There are no acute bony findings. There are no significant osteoarthritic findings. Craniocervical junction: The odontoid and atlantodental interval are normal. Alignment: There is mild reversal of the normal cervical lordosis, unchanged Disc spaces: The disc spaces are well-maintained Soft tissues: The prevertebral soft tissues are normal. IMPRESSION: NO ACUTE FINDINGS.
== END 2017-11-25 16:13 | disposition home or self-care (01) ==
LOC: UCCORT 14:19
DX: M54.12 Radiculopathy, cervical region (principal); F17.210 Nicotine dependence, cigarettes, uncomplicated; Z91.040 Latex allergy status; Z91.09 Other allergy status, other than to drugs and biological substances; Z88.8 Allergy status to other drugs, medicaments and biological substances
CPT/HCPCS: 72050; 96372; 99212; G0463; J1885

== ENCOUNTER 2018-06-22 08:48 | Emergency (ER) | payer OTHER ==
--- OUTSIDE RECORDS SUMMARY | 2018-06-22 08:57 | XMS REPORT | Continuity of Care Document ---
:1980 External Reference #:[id number] Demographics Address [address] [place] [address] Home Phone [phone] Mobile Phone [phone] Email Address Preferred Language en Marital Status Not or Islam Affiliation Unknown Race White Ethnic Group Not or Author Name Murali Houston M.D. Address [address] [place] [address] Care Team Providers Name Role Phone Shan Ha P.A. Care Team Information Assembler Motor Vehicle Unavailable [facility] Primary Care Physician Unavailable Payers Type Date Identification Numbers Payment Provider Subscriber Effective: Policy Number: Better Martina Mcwilliams 2016 [id number] [employer] Number: BRETT # [id number] [address] Group Name: [place] [address] PayID: [id number] Advance Directives Description No Information Available Problems Date Description Provider Status Onset: 09/15/2013 Allergic rhinitis due to pollen Murali Houston M.D. Active Onset: 09/15/2013 Urticaria due to cold and heat Murali Houston M.D. Active Onset: 09/15/2013 Cough Murali Houston M.D. Active Onset: 10/25/2013 Allergic rhinitis RAHAT Grady Active Onset: 05/02/2014 Extrinsic asthma without status RAHAT Grady Active asthmaticus Onset: 05/02/2014 Tobacco user RAHAT Grady Active Onset: 10/19/2014 Pruritus of skin RAHAT Grady Active Onset: 01/11/2015 Eruption RAHAT Grady Active Onset: 01/11/2015 Idiopathic urticaria RAHAT Grady Active Onset: 01/11/2015 Dermatitis Tracey Nunoe, THEATRE PROFESSOR-BC Active Onset: 05/03/2015 Body mass index 40+ - severely Murali Houston M.D. Active obese Onset: 05/03/2015 Uncomplicated moderate persistent Murali Houston M.D. Active asthma Onset: 03/19/2016 Allergic rhinitis due to animals Cindy WoodsGhislaine, Active THEATRE PROFESSOR-C Onset: 07/29/2016 Uncomplicated moderate persistent Gabriellealice Almeida, THEATRE PROFESSOR-C Active asthma Family History Date Family Member(s) Problem(s) Comments General Asthma General Seasonal Allergies General Cystic Fibrosis Maternal Cousin General Diabetes Paternal & Maternal Grandparents General Emphysema Paternal Uncle General Food Allergy General Gastroesophageal Reflux Disease (GERD) General Headache, Chronic Grandparents General Heart Disease Paternal grandmother General Hypertension General Stroke maternal grandfather & grandmother General Migraine Maternal aunt General Thyroid Disease Paternal grandmother General Sinus Disorders Paternal granmother Father Emphysema Father Headache, Chronic Father Sinus Disorders Mother Seasonal Allergies Mother Asthma First Daughter Food Allergy shellfish First Sister Sinus Disorders Social History Type Date Description Comments Sex Unknown Marital Status Legal Status: Lives With Children Lives With Spouse Lives With Roommate 2 Lives With Mother And Father Home Environment 20+Year Old Home, 2 5 Years Years In Current Home Home Environment Does not use air summons server Home Environment Has a window air conditioner Home Environment The basement is moldy Crawl Space Home Environment Cotton Comforter Home Environment Mattress is 1 year old Less than a year old Home Environment Mattress is not encased in an allergy proof case Home Environment Regular Mattress Home Environment Pillows are polyester Home Environment Does not use a dehumidifier Home Environment There are draperies in the home Home Environment The home is lucio More than average amount Home Environment The floors are carpeted Home Environment The floors are tile Home Environment Uses baseboard heating Home Environment [place] Home Environment Water Source: City Tobacco Use Start: Unknown Home is not smoke-free Tobacco Use Start: Unknown Work is not smoke-free Pets 2 dogs Pets several cats 4 Pets Guinea Pig Occupation Disabled ETOH Use Denies alcohol use Tobacco Use Start: Unknown Patient is a current smoker, smokes every day Recreational Drug Use Denies Drug Use Smoking Status Reviewed: 09/10/17 Patient is a current smoker, smokes every day Allergies, Adverse Reactions, Alerts Date Description Reaction Status Severity Comments 09/15/2013 Zoloft Hives Active 09/15/2013 Effexor Hives Active 09/15/2013 Latex ANAPHYLACTIC Active Medications Medication Date Status Form Strength Qnty SIG Indications Ordering Provider Ketotifen 05/27 Active Solution 0.025% 5ml instill 1 Jeanine Fumarate drop per Jaya, eye twice a THEATRE PROFESSOR-C day as needed. Rhinocort 03/11 Active Suspension 32mcg/Act 5ml 2 sprays each nares Jaya, daily THEATRE PROFESSOR-C Epipen 2-Jose 01/21 Active Solution 0.3mg/0.3 2unit inject into Auto-Inject ML s thigh for Jaya, symptoms of THEATRE PROFESSOR-C anaphylaxis . (mylan generic only please) Sterile Water 12/14 Active Solution 6mont use to Gabrielle For Injection hs reconstitut alice Almeida xolair. THEATRE PROFESSOR-C single-dose vial(s), discard after use. Xolair 12/08 Active Solution 150mg 6unit 300 MG SQ Q Gabrielle Rec s 4 Weeks FATOU AlmeidaP-C Ketotifen 12/04 Active Solution 0.025% 5ml instill 1 Murali Fumarate drop per Houston, eye twice a M.D. day as needed. Cetirizine HCL 11/21 Active Tablets 10mg 60tab take one Gabrielle s tablet by Uldrich, mouth twice THEATRE PROFESSOR-C a day Vanicream 10/28 Active Cream 7.5-8% 113gm apply to Z68.41 Linda Sunscreen skin prior Konstantin, to sun THEATRE PROFESSOR-C exposure Ventolin HFA 10/30 Active Aerosol 108(90Bas 18uni Inhale Two Gabrielle e) ts Puffs By Uldrich, mcg/Act Mouth Every THEATRE PROFESSOR-C 4 Hours as Needed For Cough For Shortness Of Breath Or Wheezing Levocetirizine 10/29 Active Tablets 5mg 30tab Take One L50.1 Gabrielle Dihydrochloride s Tablet By Uldrich, Mouth Every THEATRE PROFESSOR-C Day Symbicort 05/03 Active Aerosol 160-4.5mc 10.2u Inhale Two J45.40 Gabrielle /2014 g/Act nits Puffs By Uldrich, Mouth Twice THEATRE PROFESSOR-C A Day With Spacer Montelukast 01/11 Active Tablets 10mg 90tab take one L29.8 Gabrielle Sodium s tablet by Uldrich, mouth every THEATRE PROFESSOR-C day Triamcinolone 12/28 Active Cream 0.025% 80gm apply twice L29.8 Linda Acetonide /2014 a day prn. Konstantin, do not THEATRE PROFESSOR-C apply to the face. Hydroxyzine HCL 09/15 Active Tablets 25mg 180ta take one to L50.2 Gabrielle bs two tablets Uldrich, by mouth THEATRE PROFESSOR-C every night at bedtime as needed, may take one tablet every 6-8 hours as needed Metformin HCL Active Tablets 500mg twice a day Unknown /0000 Klonopin Active Tablets 1mg once a day Unknown /[address] 40mg once a day Unknown /0000 Zantac 150 00 Active Tablets 150mg 1 by mouth Unknown Maximum Strength /0000 twice a day Sumatriptan Active Tablets 100mg Take One Unknown Succinate /0000 Tablet By Mouth AT Onset Of Migraine May Repeat One Dose In Oxcarbazepine 00 Active Tablets 600mg Take One Unknown /0000 Tablet By Mouth Four Times A Day Folic Acid 00 Active Tablets 1mg daily Unknown /0000 Frovatriptan 0000 Active Tablets 2.5mg Take One Unknown Succinate /0000 Tablet By Mouth Every 2 Hours Maximum Daily Dose 3 Medications Administered in Office Medication Date Status Form Strength Qnty SIG Indications Ordering Provider Biologic Agent 05/27/ Administered Injection Jeanine Administration 2018 CARLEE Lake Biologic Agent 04/15/ Administered Injection Jeanine Administration 2017 CARLEE Lake Biologic Agent 03/11/ Administered Injection Jeanine Administration 2017 CARLEE Lake Biologic Agent 01/21/ Administered Injection Murali Administration 2017 Senthil Houston Biologic Agent 01/21/ Administered Injection Jeanine Administration 2017 CARLEE Lake Biologic Agent 12/03/ Administered Injection Murali Administration 2017 Senthil Houston Biologic Agent 12/03/ Administered Injection Jeanine Administration 2018 Jaya, THEATRE PROFESSOR-C Biologic Agent 10/15/ Administered Injection Jeanine Administration 2017 Jaya, THEATRE PROFESSOR-C Biologic Agent 09/10/ Administered Injection Maritza Administration 2017 Dussing, THEATRE PROFESSOR-C Biologic Agent 07/22/ Administered Injection Gabrielle Administration 2017 Uldrich, THEATRE PROFESSOR-C Biologic Agent 06/04/ Administered Injection Linda Administration 2017 Konstantin, THEATRE PROFESSOR-C Biologic Agent 05/05/ Administered Injection Gabrielle Administration 2016 Uldrich, THEATRE PROFESSOR-C Biologic Agent 03/19/ Administered Injection Rosaura Administration 2016 Forshier, THEATRE PROFESSOR-C Biologic Agent 02/19/ Administered Injection Rosaura Administration 2016 Forshier, THEATRE PROFESSOR-C Biologic Agent 01/22/ Administered Injection Murali Administration 2016 Senthil Houston Biologic Agent 01/22/ Administered Injection Linda Administration 2016 Konstantin, THEATRE PROFESSOR-C Biologic Agent 12/04/ Administered Injection Linda Administration 2016 Konstantin, THEATRE PROFESSOR-C Biologic Agent 10/28/ Administered Injection Murali Administration 2016 Senthil Houston Biologic Agent 10/28/ Administered Injection Gabrielle Administration 2016 Uldrich, THEATRE PROFESSOR-C Biologic Agent 09/02/ Administered Injection Gabrielle Administration 2017 U[place], THEATRE PROFESSOR-C Biologic Agent 07/29/ Administered Injection Gabrielle Administration 2017 U[place], THEATRE PROFESSOR-C Biologic Agent 06/26/ Administered Injection Linda Administration 2016 Konstantin, THEATRE PROFESSOR-C Biologic Agent 05/22/ Administered Injection Linda Administration 2016 Konstantin, THEATRE PROFESSOR-C Biologic Agent 03/19/ Administered Injection Cindy Administration 2015 Janiya short THEATRE PROFESSOR-C Biologic Agent 02/06/ Administered Injection Murali Administration 2015 Senthil Houston Biologic Agent 01/02/ Administered Injection Maritza Administration 2015 Dussing, THEATRE PROFESSOR-C Biologic Agent 12/05/ Administered Injection Tracey Administration 2015 Luis A, THEATRE PROFESSOR-BC Biologic Agent 10/29/ Administered Injection Maritza Administration 2015 Duss[place], THEATRE PROFESSOR-C Injection 10/08/ Administered Injection Murali 2015 Senthil Houston Biologic Agent 07/25/ Administered Injection Tracey Administration 2015 Luis A, THEATRE PROFESSOR-BC Biologic Agent 06/07/ Administered Injection Tracey Administration 2015 Luis A, THEATRE PROFESSOR-BC Biologic Agent 05/10/ Administered Injection Maritza Administration 2014 Nazario, THEATRE PROFESSOR-C Biologic Agent /05/ Administered Injection Maritza Administration 2014 Dussing, THEATRE PROFESSOR-C Injection 10// Administered Injection Allergy 2014 Injection Biologic Agent 10/08/ Administered Injection Maritza Administration 2014 Dussing, THEATRE PROFESSOR-C Injection 10/01/ Administered Injection Allergy 2014 Injection Injection 09/24/ Administered Injection Allergy 2014 Injection Injection 09/15/ Administered Injection Allergy 2014 Injection Injection 09/08/ Administered Injection Allergy 2014 Injection Injection 09/01/ Administered Injection Allergy 2014 Injection Injection 08/25/ Administered Injection Allergy 2014 Injection Injection 08/20/ Administered Injection Allergy 2014 Injection Injection 08/11/ Administered Injection Allergy 2014 Injection Injection 08/04/ Administered Injection Allergy 2014 Injection Injection 07/28/ Administered Injection Allergy 2014 Injection Injection 07/21/ Administered Injection Allergy 2014 Injection Injection 07/07/ Administered Injection Allergy 2014 Injection Injection 06/23/ Administered Injection Allergy 2014 Injection Injection 06/11/ Administered Injection Allergy 2014 Injection Injection 05/28/ Administered Injection Allergy 2014 Injection Injection 05/12/ Administered Injection Allergy 2014 Injection Injection 04/30/ Administered Injection Allergy 2015 Injection Injection 04/16/ Administered Injection Allergy 2015 Injection Injection 04/02/ Administered Injection Allergy 2015 Injection Injection 03/17/ Administered Injection Allergy 2015 Injection Injection 03/05/ Administered Injection Allergy 2015 Injection Injection 02/19/ Administered Injection Allergy 2015 Injection Injection 02/05/ Administered Injection Allergy 2015 Injection Injection 01/15/ Administered Injection Allergy 2015 Injection Injection 01/08/ Administered Injection Allergy 2015 Injection Injection 12/30/ Administered Injection Allergy 2013 Injection Injection 12/23/ Administered Injection Allergy 2013 Injection Injection 12/16/ Administered Injection Allergy 2013 Injection Injection 12/09/ Administered Injection Allergy 2013 Injection Injection 12/02/ Administered Injection Allergy 2013 Injection Injection 11/25/ Administered Injection Allergy 2013 Injection Injection 11/11/ Administered Injection Allergy 2013 Injection Injection 11/04/ Administered Injection Allergy 2013 Injection Injection 10/23/ Administered Injection Allergy 2013 Injection Injection 10/16/ Administered Injection Murali 2013 Senthil Houston Injection 10/16/ Administered Injection Allergy 2013 Injection Injection /16/ Administered Injection Murali 2013 Senthil Houston Injection /16/ Administered Injection Allergy 2013 Injection Injection // Administered Injection Murali 2013 Senthil Houston Injection 01/17/ Administered Injection Allergy 2013 Injection Injection 01/10/ Administered Injection Murali 2013 Senthil Houston Injection 01/10/ Administered Injection Allergy 2013 Injection Injection 01/05/ Administered Injection Murali 2013 Senthil Houston Injection 01/05/ Administered Injection Allergy 2013 Injection Injection 12/29/ Administered Injection Murali 2013 Senthil Houston Injection 12/29/ Administered Injection Allergy 2013 Injection Injection 12/20/ Administered Injection Murali 2013 Senthil Houston Injection 12/20/ Administered Injection Allergy 2013 Injection Injection // Administered Injection Murali 2013 Senthil Houston Injection // Administered Injection Allergy 2013 Injection Injection 12/06/ Administered Injection Murali 2013 Senthil Houston Injection 12/06/ Administered Injection Allergy 2013 Injection Injection 11/29/ Administered Injection Murali 2013 Senthil Houston Injection // Administered Injection Allergy 2013 Injection Injection 11/24/ Administered Injection Murali 2013 Senthil Houston Injection // Administered Injection Allergy 2013 Injection Injection // Administered Injection Murali 2013 Senthil Houston Injection // Administered Injection Allergy 2013 Injection Injection 11/08/ Administered Injection Allergy 2013 Injection Injection 11/01/ Administered Injection Allergy 2013 Injection Injection 10/25/ Administered Injection Allergy 2013 Injection Immunizations CPT Code Status Date Vaccine Lot # 05391 Given 12/09/2012 Influenza Vaccine 10974 Given Unknown Influenza Vaccine 50416 Given Unknown Influenza Vaccine 53179 Given Unknown Influenza Vaccine 89898 Given Unknown Influenza Vaccine 84157 Given Unknown Influenza Vaccine Vital Signs Date Vital Result Comment 05/27/2018 8:55am Height 65 inches 5'5" Weight 264.00 lb Weight 119.750 kg Respiratory Rate 16 /min Heart Rate 84 /min O2 % BldC Oximetry 96 % BP Systolic 107 mmHg BP Diastolic 68 mmHg Asthma Control Test 12 BMI (Body Mass Index) 43.9 kg/m2 04/15/2018 9:50am Height 65 inches 5'5" Weight 255.00 lb Weight 115.668 kg Respiratory Rate 20 /min Heart Rate 100 /min O2 % BldC Oximetry 95 % BP Systolic 107 mmHg BP Diastolic 68 mmHg Asthma Control Test 23 BMI (Body Mass Index) 42.4 kg/m2 03/11/2018 9:01am Height 65 inches 5'5" Weight 255.00 lb Weight 115.668 kg Respiratory Rate 18 /min Heart Rate 90 /min O2 % BldC Oximetry 96 % BP Systolic 127 mmHg BP Diastolic 56 mmHg Asthma Control Test 24 BMI (Body Mass Index) 42.4 kg/m2 01/21/2018 8:51am Height 65 inches 5'5" Weight 258.00 lb Weight 117.029 kg Respiratory Rate 18 /min Heart Rate 98 /min O2 % BldC Oximetry 98 % BP Systolic 104 mmHg BP Diastolic 67 mmHg Asthma Control Test 22 BMI (Body Mass Index) 42.9 kg/m2 12/03/2017 8:44am Height 65 inches 5'5" Weight 258.00 lb Weight 117.029 kg Respiratory Rate 18 /min Heart Rate 81 /min O2 % BldC Oximetry 98 % BMI (Body Mass Index) 42.9 kg/m2 10/15/2017 8:55am Height 65 inches 5'5" Weight 209.00 lb Weight 94.802 kg Respiratory Rate 20 /min Heart Rate 92 /min O2 % BldC Oximetry 96 % BP Systolic 116 mmHg BP Diastolic 80 mmHg Asthma Control Test 25 BMI (Body Mass Index) 34.8 kg/m2 09/10/2017 8:44am Height 65 inches 5'5" Weight 263.00 lb Weight 119.297 kg Respiratory Rate 16 /min Heart Rate 67 /min O2 % BldC Oximetry 97 % BP Systolic 112 mmHg BP Diastolic 76 mmHg BMI (Body Mass Index) 43.8 kg/m2 07/22/2017 8:59am Height 65 inches 5'5" Weight 265.00 lb Weight 120.204 kg Respiratory Rate 18 /min Heart Rate 96 /min O2 % BldC Oximetry 96 % BP Systolic 123 mmHg BP Diastolic 65 mmHg Asthma Control Test 14 BMI (Body Mass Index) 44.1 kg/m2 06/04/2017 9:45am Height 65 inches 5'5" Weight 263.00 lb Weight 119.297 kg Respiratory Rate 20 /min Heart Rate 91 /min O2 % BldC Oximetry 96 % BP Systolic 103 mmHg BP Diastolic 69 mmHg Asthma Control Test 22 BMI (Body Mass Index) 43.8 kg/m2 05/05/2017 10:14am Height 65 inches 5'5" Weight 263.00 lb Weight 119.297 kg Respiratory Rate 18 /min Heart Rate 93 /min O2 % BldC Oximetry 98 % BP Systolic 114 mmHg BP Diastolic 71 mmHg BMI (Body Mass Index) 43.8 kg/m2 03/19/2017 1:02pm Height 65 inches 5'5" Weight 260.00 lb Weight 117.936 kg Respiratory Rate 18 /min Heart Rate 110 /min O2 % BldC Oximetry 97 % BP Systolic 115 mmHg BP Diastolic 71 mmHg Asthma Control Test 27 BMI (Body Mass Index) 43.3 kg/m2 02/19/2017 1:49pm Height 65 inches 5'5" Weight 257.00 lb Weight 116.575 kg Respiratory Rate 20 /min Heart Rate 88 /min O2 % BldC Oximetry 98 % BP Systolic 117 mmHg BP Diastolic 77 mmHg Asthma Control Test 22 BMI (Body Mass Index) 42.8 kg/m2 01/22/2017 1:47pm Height 65 inches 5'5" Weight 259.00 lb Weight 117.482 kg Respiratory Rate 24 /min Heart Rate 92 /min O2 % BldC Oximetry 98 % BP Systolic 109 mmHg BP Diastolic 69 mmHg Asthma Control Test 16 BMI (Body Mass Index) 43.1 kg/m2 12/04/2016 9:24am Height 65 inches 5'5" Weight 262.00 lb Weight 118.843 kg Respiratory Rate 16 /min Heart Rate 109 /min O2 % BldC Oximetry 97 % BP Systolic 97 mmHg BP Diastolic 65 mmHg Asthma Control Test 15 BMI (Body Mass Index) 43.6 kg/m2 10/28/2016 10:10am Height 65 inches 5'5" Weight 269.00 lb Weight 122.018 kg Respiratory Rate 20 /min Heart Rate 97 /min O2 % BldC Oximetry 98 % BP Systolic 120 mmHg BP Diastolic 87 mmHg Asthma Control Test 22 BMI (Body Mass Index) 44.8 kg/m2 09/30/2016 9:33am Height 65 inches 5'5" Weight 269.00 lb Weight 122.018 kg Respiratory Rate 20 /min Heart Rate 90 /min O2 % BldC Oximetry 98 % BP Systolic 122 mmHg BP Diastolic 76 mmHg Asthma Control Test 22 BMI (Body Mass Index) 44.8 kg/m2 09/02/2016 9:06am Height 65 inches 5'5" Weight 274.88 lb Weight 124.683 kg Respiratory Rate 16 /min Heart Rate 95 /min O2 % BldC Oximetry 97 % BP Systolic 99 mmHg BP Diastolic 67 mmHg Asthma Control Test 18 BMI (Body Mass Index) 45.7 kg/m2 07/29/2016 3:15pm Height 65 inches 5'5" Weight 287.00 lb Weight 130.183 kg Respiratory Rate 20 /min Heart Rate 97 /min O2 % BldC Oximetry 98 % BP Systolic 114 mmHg BP Diastolic 60 mmHg Asthma Control Test 24 BMI (Body Mass Index) 47.8 kg/m2 06/26/2016 9:53am Height 65 inches 5'5" Weight 289.00 lb Weight 131.090 kg Respiratory Rate 18 /min Heart Rate 90 /min O2 % BldC Oximetry 99 % BP Systolic 114 mmHg BP Diastolic 71 mmHg Asthma Control Test 20 BMI (Body Mass Index) 48.1 kg/m2 05/22/2016 9:41am Height 65 inches 5'5" Weight 289.00 lb Weight 131.090 kg Respiratory Rate 20 /min Heart Rate 106 /min O2 % BldC Oximetry 98 % BP Systolic 113 mmHg BP Diastolic 66 mmHg Asthma Control Test 19 BMI (Body Mass Index) 48.1 kg/m2 03/19/2016 10:37am Height 65 inches 5'5" Weight 286.00 lb Weight 129.730 kg Respiratory Rate 24 /min Heart Rate 101 /min O2 % BldC Oximetry 97 % BP Systolic 107 mmHg BP Diastolic 76 mmHg Asthma Control Test 10 BMI (Body Mass Index) 47.6 kg/m2 02/07/2016 11:28am Height 65 inches 5'5" Weight 286.00 lb Weight 129.730 kg Respiratory Rate 18 /min Heart Rate 105 /min O2 % BldC Oximetry 98 % BP Systolic 122 mmHg BP Diastolic 69 mmHg Asthma Control Test 15 BMI (Body Mass Index) 47.6 kg/m2 01/03/2016 9:40am Height 65 inches 5'5" Weight 296.00 lb Weight 134.266 kg Respiratory Rate 16 /min Heart Rate 99 /min O2 % BldC Oximetry 97 % BP Systolic 104 mmHg BP Diastolic 68 mmHg BMI (Body Mass Index) 49.3 kg/m2 12/06/2015 9:52am Height 65 inches 5'5" Weight 299.00 lb Weight 135.626 kg Respiratory Rate 18 /min Heart Rate 111 /min O2 % BldC Oximetry 97 % BP Systolic 127 mmHg BP Diastolic 80 mmHg Asthma Control Test 21 BMI (Body Mass Index) 49.8 kg/m2 10/30/2015 11:54am Height 65 inches 5'5" Weight 306.00 lb Weight 138.802 kg Respiratory Rate 18 /min Heart Rate 94 /min O2 % BldC Oximetry 98 % BP Systolic 105 mmHg BP Diastolic 75 mmHg Asthma Control Test 20 BMI (Body Mass Index) 50.9 kg/m2 07/26/2015 1:26pm Height 65 inches 5'5" Weight 318.00 lb Weight 144.245 kg Respiratory Rate 18 /min Heart Rate 112 /min O2 % BldC Oximetry 98 % BP Systolic 116 mmHg BP Diastolic 76 mmHg Asthma Control Test 17 BMI (Body Mass Index) 52.9 kg/m2 06/07/2015 10:47am Height 67 inches 5'7" Weight 323.00 lb Weight 146.513 kg Respiratory Rate 18 /min Heart Rate 105 /min O2 % BldC Oximetry 98 % BP Systolic 98 mmHg BP Diastolic 70 mmHg BMI (Body Mass Index) 50.6 kg/m2 05/10/2015 8:34am Height 67 inches 5'7" Weight 334.00 lb Weight 151.502 kg Respiratory Rate 20 /min Heart Rate 113 /min O2 % BldC Oximetry 98 % BP Systolic 130 mmHg BP Diastolic 73 mmHg BMI (Body Mass Index) 52.3 kg/m2 05/03/2015 8:35am Height 67 inches 5'7" Weight 334.00 lb Weight 151.502 kg Respiratory Rate 18 /min Heart Rate 127 /min O2 % BldC Oximetry 96 % BP Systolic 130 mmHg BP Diastolic 79 mmHg Asthma Control Test 14 BMI (Body Mass Index) 52.3 kg/m2 03/15/2015 1:09pm Height 67 inches 5'7" Weight 333.00 lb Weight 151.049 kg Respiratory Rate 16 /min Heart Rate 119 /min O2 % BldC Oximetry 98 % BP Systolic 120 mmHg BP Diastolic 80 mmHg Asthma Control Test 19 BMI (Body Mass Index) 52.1 kg/m2 02/15/2015 9:01am Height 67 inches 5'7" Weight 321.00 lb Weight 145.606 kg Respiratory Rate 18 /min Heart Rate 96 /min O2 % BldC Oximetry 97 % BMI (Body Mass Index) 50.3 kg/m2 01/11/2015 8:58am Height 67 inches 5'7" Weight 320.00 lb Weight 145.152 kg Respiratory Rate 18 /min Heart Rate 106 /min O2 % BldC Oximetry 97 % BP Systolic 113 mmHg BP Diastolic 74 mmHg Asthma Control Test 24 BMI (Body Mass Index) 50.1 kg/m2 12/28/2014 8:54am Height 67 inches 5'7" Weight 320.50 lb Weight 145.379 kg Respiratory Rate 19 /min Heart Rate 101 /min O2 % BldC Oximetry 98 % BP Systolic 117 mmHg BP Diastolic 87 mmHg Asthma Control Test 21 BMI (Body Mass Index) 50.2 kg/m2 10/31/2014 8:58am Height 67 inches 5'7" Weight 322.00 lb Weight 146.059 kg Respiratory Rate 18 /min Heart Rate 90 /min O2 % BldC Oximetry 98 % BP Systolic 126 mmHg BP Diastolic 82 mmHg Asthma Control Test 18 BMI (Body Mass Index) 50.4 kg/m2 10/19/2014 9:05am Height 67 inches 5'7" Weight 322.00 lb Weight 146.059 kg Respiratory Rate 16 /min Heart Rate 109 /min O2 % BldC Oximetry 98 % BP Systolic 118 mmHg BP Diastolic 80 mmHg Asthma Control Test 10 BMI (Body Mass Index) 50.4 kg/m2 10/11/2014 1:42pm Height 67 inches 5'7" Weight 328.00 lb Weight 148.781 kg Respiratory Rate 18 /min Heart Rate 106 /min Body Temperature 98.0 F O2 % BldC Oximetry 96 % BP Systolic 138 mmHg BP Diastolic 86 mmHg Asthma Control Test 19 BMI (Body Mass Index) 51.4 kg/m2 09/19/2014 9:33am Height 67 inches 5'7" Weight 333.00 lb Weight 151.049 kg Respiratory Rate 18 /min Heart Rate 105 /min O2 % BldC Oximetry 98 % BP Systolic 120 mmHg BP Diastolic 98 mmHg Asthma Control Test 14 BMI (Body Mass Index) 52.1 kg/m2 06/29/2014 9:04am Height 67 inches 5'7" Weight 328.00 lb Weight 148.781 kg Respiratory Rate 20 /min Heart Rate 105 /min O2 % BldC Oximetry 98 % BP Systolic 112 mmHg BP Diastolic 80 mmHg BMI (Body Mass Index) 51.4 kg/m2 05/02/2014 9:00am Height 66 inches 5'6" Weight 327.00 lb Weight 148.327 kg Respiratory Rate 16 /min Heart Rate 101 /min O2 % BldC Oximetry 98 % BP Systolic 120 mmHg BP Diastolic 80 mmHg Asthma Control Test 15 BMI (Body Mass Index) 52.8 kg/m2 10/25/2013 5:17pm Height 65.5 inches 5'5.50" Weight 335.00 lb Weight 151.956 kg Respiratory Rate 18 /min Heart Rate 109 /min O2 % BldC Oximetry 97 % BP Systolic 100 mmHg BP Diastolic 78 mmHg BMI (Body Mass Index) 54.9 kg/m2 10/11/2013 10:14am Height 66 inches 5'6" Weight 326.00 lb Weight 147.874 kg Respiratory Rate 20 /min Heart Rate 102 /min O2 % BldC Oximetry 96 % BP Systolic 04712 mmHg BMI (Body Mass Index) 52.6 kg/m2 09/27/2013 5:06pm Height 65 inches 5'5" per pt Weight 333.00 lb per pt Weight 151.049 kg Respiratory Rate 20 /min Heart Rate 100 /min O2 % BldC Oximetry 97 % BP Systolic 120 mmHg BP Diastolic 80 mmHg BMI (Body Mass Index) 55.4 kg/m2 09/22/2013 10:24am Height 65 inches 5'5" Weight 339.00 lb Weight 153.770 kg Respiratory Rate 19 /min Heart Rate 106 /min O2 % BldC Oximetry 98 % BP Systolic 118 mmHg BP Diastolic 76 mmHg BMI (Body Mass Index) 56.4 kg/m2 09/20/2013 10:13am Height 65 inches 5'5" Weight 339.00 lb Weight 153.770 kg Respiratory Rate 18 /min Heart Rate 106 /min O2 % BldC Oximetry 98 % BP Systolic 110 mmHg BP Diastolic 60 mmHg BMI (Body Mass Index) 56.4 kg/m2 09/15/2013 2:13pm Height 65 inches 5'5" Weight 339.00 lb Weight 153.770 kg Respiratory Rate 18 /min Heart Rate 118 /min O2 % BldC Oximetry 96 % BP Systolic 100 mmHg BP Diastolic 58 mmHg BMI (Body Mass Index) 56.4 kg/m2 Results Description No Information Available Procedures Date Code Description Status 05/27/2018 66580 Biologic Agent Administration Completed 04/15/2018 60007 Biologic Agent Administration Completed 03/11/2018 64392 Biologic Agent Administration Completed 03/11/2018 63330 Pre PFT Completed 01/21/2018 77693 Biologic Agent Administration Completed 01/21/2018 44941 Biologic Agent Administration Completed 12/03/2017 51580 Biologic Agent Administration Completed 12/03/2017 54079 Biologic Agent Administration Completed 12/03/2017 82616 Pre PFT Completed 12/03/2017 17765 Pre PFT Completed 10/15/2017 28217 Biologic Agent Administration Completed 09/10/2017 50084 Biologic Agent Administration Completed 07/22/2017 46694 Biologic Agent Administration Completed 06/04/2017 14365 Biologic Agent Administration Completed 06/04/2017 10482 Ippb Completed 05/05/2017 25658 Biologic Agent Administration Completed 03/19/2017 32336 Biologic Agent Administration Completed 02/19/2017 69844 Biologic Agent Administration Completed 02/19/2017 86398 Pre PFT Completed 01/22/2017 76380 Biologic Agent Administration Completed 01/22/2017 62185 Biologic Agent Administration Completed 12/04/2016 82673 Biologic Agent Administration Completed 10/28/2016 89546 Biologic Agent Administration Completed 10/28/2016 77387 Biologic Agent Administration Completed 09/02/2016 85914 Biologic Agent Administration Completed 09/02/2016 53657 Pre PFT Completed 07/29/2016 21361 Biologic Agent Administration Completed 06/26/2016 83676 Biologic Agent Administration Completed 05/22/2016 83942 Biologic Agent Administration Completed 03/19/2016 16934 Biologic Agent Administration Completed 02/07/2016 91675 Biologic Agent Administration Completed 01/03/2016 61584 Biologic Agent Administration Completed 01/03/2016 30283 Pre PFT Completed 12/06/2015 21981 Biologic Agent Administration Completed 10/30/2015 63077 Biologic Agent Administration Completed 10/09/2015 14887 Extract 1-10 Completed 10/09/2015 92133 Injection Completed 07/26/2015 23223 Biologic Agent Administration Completed 06/07/2015 93091 Biologic Agent Administration Completed 05/10/2015 67950 Biologic Agent Administration Completed 05/03/2015 60258 Pre PFT Completed 03/15/2015 00209 Biologic Agent Administration Completed 03/01/2015 72650 Extract 1-10 Completed 03/01/2015 19208 Injection Completed 02/15/2015 10990 Biologic Agent Administration Completed 02/08/2015 47191 Injection Completed 02/01/2015 78926 Injection Completed 01/23/2015 38624 Injection Completed 01/16/2015 87025 Injection Completed 01/09/2015 10834 Injection Completed 01/02/2015 25993 Injection Completed 12/28/2014 41836 Injection Completed 12/19/2014 86861 Injection Completed 12/12/2014 88535 Extract 1-10 Completed 12/12/2014 93422 Injection Completed 12/05/2014 37287 Injection Completed 11/28/2014 77402 Injection Completed 11/14/2014 06079 Injection Completed 10/31/2014 20276 Injection Completed 10/31/2014 49596 Pre PFT Completed 10/19/2014 37063 Injection Completed 10/05/2014 53936 Injection Completed 09/19/2014 11119 Injection Completed 09/19/2014 53240 Pre PFT Completed 09/07/2014 53190 Injection Completed 08/24/2014 70736 Injection Completed 08/10/2014 47131 Extract 1-10 Completed 08/10/2014 09459 Injection Completed 07/25/2014 47059 Injection Completed 07/13/2014 65342 Injection Completed 06/29/2014 24546 Injection Completed 06/15/2014 06823 Injection Completed 05/25/2014 77457 Injection Completed 05/18/2014 34036 Injection Completed 05/09/2014 59123 Injection Completed 05/02/2014 44250 Pre PFT Completed 05/02/2014 40143 Injection Completed 04/25/2014 51275 Injection Completed 04/18/2014 54095 Extract 1-10 Completed 04/18/2014 69187 Injection Completed 04/11/2014 19249 Injection Completed 04/04/2014 63234 Injection Completed 03/21/2014 20149 Injection Completed 03/14/2014 33251 Injection Completed 03/02/2014 79972 Injection Completed 02/23/2014 35102 Injection Completed 02/23/2014 87479 Injection Completed 01/24/2014 57654 Injection Completed 01/24/2014 25112 Injection Completed 01/17/2014 92330 Injection Completed 01/17/2014 14008 Injection Completed 01/10/2014 67848 Injection Completed 01/10/2014 81134 Injection Completed 01/05/2014 09382 Extract 1-10 Completed 01/05/2014 04510 Injection Completed 01/05/2014 50953 Injection Completed 12/29/2013 00815 Injection Completed 12/29/2013 56889 Injection Completed 12/20/2013 70298 Injection Completed 12/20/2013 39573 Injection Completed 12/13/2013 71837 Injection Completed 12/13/2013 33276 Injection Completed 12/06/2013 10196 Injection Completed 12/06/2013 59272 Injection Completed 11/29/2013 50143 Injection Completed 11/29/2013 52615 Injection Completed 11/24/2013 59050 Injection Completed 11/24/2013 97742 Injection Completed 11/15/2013 43402 Injection Completed 11/15/2013 49261 Injection Completed 11/08/2013 96154 Injection Completed 11/01/2013 09759 Injection Completed 10/25/2013 58155 Injection Completed 10/20/2013 83557 Extract 1-10 Completed 10/11/2013 47637 Skin Tests Id Completed 10/11/2013 35892 Skin Tests Id Completed 09/20/2013 82528 Patch Testing Completed 09/20/2013 19053 Patch Testing Completed 09/15/2013 42902 Skin Test Scratch # Of Units ____ Completed 09/15/2013 40645 Pulmonary Function Test Completed Encounters Type Date Location Provider Dx Diagnosis Office Visit 05/27/2018 [facility] Jeanine [place], L50.1 Idiopathic 8:40a [employer] urticaria J45.40 Moderate persistent asthma, uncomplicated J30.1 Allergic rhinitis due to pollen J30.81 Allergic rhinitis due to animal (cat) (dog) hair and dander F17.210 Nicotine dependence, cigarettes, uncomplicated Office Visit 02/19/2017 2:00p [facility] Rosaura Castillo Z23 Encounter for [employer] immunization J01.00 Acute maxillary sinusitis, unspecified J45.40 Moderate persistent asthma, uncomplicated Office Visit 12/04/2016 9:40a [facility] Linda J45.40 Moderate persistent Konstantin, [employer] asthma, uncomplicated J30.1 Allergic rhinitis due to pollen J30.81 Allergic rhinitis due to animal (cat) (dog) hair and dander L50.1 Idiopathic urticaria J30.2 Other seasonal allergic rhinitis J30.89 Other allergic rhinitis F17.210 Nicotine dependence, cigarettes, uncomplicated Office Visit 09/30/2016 9:20a [facility] Gabrielle J45.40 Moderate persistent Uldrich, [employer] asthma, uncomplicated J30.1 Allergic rhinitis due to pollen J30.81 Allergic rhinitis due to animal (cat) (dog) hair and dander L50.1 Idiopathic urticaria Z68.41 Body mass index (BMI) 40.0-44.9, adult Office Visit 05/03/2015 8:40a [facility] Murali Houstno, J30.1 Allergic rhinitis M.D. due to pollen Z68.43 Body mass index (BMI) 50-59.9 , adult J30.2 Other seasonal allergic rhinitis J30.1 Allergic rhinitis due to pollen J30.81 Allergic rhinitis due to animal (cat) (dog) hair and dander J45.40 Moderate persistent asthma, uncomplicated J30.89 Other allergic rhinitis L29.8 Other pruritus Office Visit 01/11/2015 9:00a [facility] Tracey Luis A, 698.8 Pruritic [employer] Conditions Spec Other 708.1 Urticaria Idiopathic 692.89 Dermatitis Due To Spec Agents Other V85.43 Body Mass Index 50.0-59.9, Adult Office Visit 12/28/2014 9:00a [facility] Maritza Lange, 698.8 Pruritic [employer] Conditions Spec Other 493.00 Asthma Extrinsic Unspecified V85.43 Body Mass Index 50.0-59.9, Adult Office Visit 10/31/2014 9:20a [facility] Tracey 493.00 Asthma Extrinsic Luis A, [employer] Unspecified 305.1 Tobacco Use Disorder Office Visit 10/19/2014 9:00a [facility] Tracey Luis A, 698.8 Pruritic [employer] Conditions Spec Other Office Visit 10/11/2014 1:40p [place] Marissa 698.8 Pruritic Danielewicz, Conditions Spec PH.D, RPA-C Other 477.0 Rhinitis Allergic Due To Pollen 477.8 Rhinitis Allergic Due To Other Allergen 493.00 Asthma Extrinsic Unspecified 305.1 Tobacco Use Disorder V85.43 Body Mass Index 50.0-59.9, Adult Office Visit 09/19/2014 9:20a [facility] Tracey 493.00 Asthma Extrinsic Luis A, [employer] Unspecified 305.1 Tobacco Use Disorder V85.43 Body Mass Index 50.0-59.9, Adult Office Visit 06/29/2014 9:00a [facility] Marissa 477.8 Rhinitis Danielesoycz, PH.D, Allergic Due To RPA-C Other Allergen 477.0 Rhinitis Allergic Due To Pollen 493.00 Asthma Extrinsic Unspecified 305.1 Tobacco Use Disorder Office Visit 05/02/2014 8:40a [facility] Tracey Gunn, 477.0 Rhinitis [employer] Allergic Due To Pollen 477.8 Rhinitis Allergic Due To Other Allergen 493.00 Asthma Extrinsic Unspecified 305.1 Tobacco Use Disorder Office Visit 10/25/2013 5:20p [facility] Tracey Gunn, 477.8 Rhinitis [employer] Allergic Due To Other Allergen 477.0 Rhinitis Allergic Due To Pollen 708.2 Urticaria Due To Cold & Heat 786.2 Cough Office Visit 10/11/2013 10:00a [facility] Allergy Testing Office Visit 09/27/2013 5:20p [facility] Tracey Gunn, 477.0 Rhinitis [employer] Allergic Due To Pollen 708.2 Urticaria Due To Cold & Heat 786.2 Cough Office Visit 09/20/2013 10:00a [facility] Allergy Testing 477.0 Rhinitis Allergic Due To Pollen 708.2 Urticaria Due To Cold & Heat Office Visit 09/15/2013 2:20p [facility] Murali Housotn 477.0 Rhinitis Allergic M.D. Due To Pollen 708.2 Urticaria Due To Cold & Heat 786.2 Cough Plan of Treatment Future Appointment(s):06/24/2018 2:00 pm - CARLEE Isidro at [facility]05/27/2018 - CARMITA Isidro-CL50.1 Idiopathic gremcsohjP15.40 Moderate persistent asthma, ncahyahagxzzzR39.1 Allergic rhinitis due to uckgrpN66.81 Allergic rhinitis due to animal (cat) (dog) hair and qyhrxjO69.210 Nicotine dependence, cigarettes, uncomplicatedFollow up:f/u 1 month for Xolair inj.Recommendations:Continue all medications as prescribed: Rhinocort Allergy 32 mcg/Act 2 sprays each nares daily Epipen 2-Jose 0.3 mg/0.3ml inject into thigh for symptoms of anaphylaxis. (mylan generic only please) Xolair 150 mg 300 mg sq q 4 weeks Ketotifen Fumarate 0.025 % instill 1 drop per eye twice a day as needed. Cetirizine HCL 10 mg take one tablet by mouth twice a day Vanicream Sunscreen 7.5-8 % apply to skin prior to sun exposure Ventolin HFA 108 (90 base) mcg/act inhale two puffs by mouth every 4 hours as needed for cough for shortness of breath or wheezing Levocetirizine Dihydrochloride 5 mg take one tablet by mouth every day Symbicort 160-4.5 mcg/act inhale two puffs by mouth twice A day with spacer Montelukast Sodium 10 mg take one tablet by mouth every day Triamcinolone Acetonide 0.025 % apply twice a day prn. do not apply to the face. Hydroxyzine HCL 25 mg take one to two tablets by mouth every night at bedtime as needed, may take one tablet every 6-8 hours as needed Patient instructed to choose either cetirizine or levocetirizine nightly. If necessary due to severe symptoms can double night time dose. Reviewed thoroughly appropriate use of Epipen. She hs going on vacation and wants to have one with her. Reinforced they are for Xolair injection reation, not to treat idiopathic hives. Reinforced that Rhinocort needed every day not just periodically if she wants to better control PND Sinus rinses 1-2 times /day Smoking cessation has been reinforced, best to avoid second hnad smoke. - Avoid all known and suspicious triggers/irritants. -Daily baths are recommended and may be taken several times a day during flareup of symptoms. -Bathing removes allergens and bacteria from skin surface. -Use pH balanced soap like Dove or Cetaphil. Harsh soaps may alter the pH of the skin and contribute to dryness, cracking and itching. -After bathing, dab dry but leave some moisture on the skin. -Immediately apply a physicians formula moisturizer (Vanicream Vaniply or equivalant) while the skin is still moist. Reapply moisturizer during the day and before sleep. -Apply a clean wet dressing to affected areas of the skin to reduce itching and skin inflammation. -New clothing should be laundered before use. Use extra rinse cycle to remove residual laundry detergents from clothes. Cotton blends are the best clothing. -Use non- sensitizing sunscreens to avoid sunburn. Patient to discuss BMI with their primary-care provider. Educational literature available for patient review.Xolair injection today.
[2018-06-22 09:04] VITALS: BP 123/65
--- NOTE | 2018-06-22 09:34 | UC ---
Knee Pain HPI - HPI Summary HPI Summary: right knee pain x 2 weeks injury to right knee 2 weeks ago as she was kneeling for a long period felt a pop with severe pain of the right knee + swelling , difficulty waling - History of Current Complaint Chief Complaint: UCLowerExtremity Stated Complaint: RIGHT KNEE PAIN Time Seen by Provider: 06/22/18 09:02 Hx Obtained From: Patient Hx Last Menstrual Period: MIRENA ?: No Onset/Duration: Sudden Onset, Lasting Weeks - 2, Still Present Severity Initially: Severe Severity Currently: Severe Pain Intensity: 9 Character: Aching, Throbbing Aggravating Factor(s): Movement, Weight Bearing, Prolonged Standing, Stairs Alleviating Factor(s): Nothing Associated Signs And Symptoms: Positive: Swelling. Negative: Redness, Bruising , Fever, Weakness, Numbness - Allergies/Home Medications Allergies/Adverse Reactions: Allergies Allergy/AdvReac Type Severity Reaction Status Date / Time latex Allergy Swelling Verified 06/22/18 08:56 Of Face,Lips,& Throat nickel Allergy POSITIVE Verified 06/22/18 08:56 ALLERGY TESTING sertraline Allergy Hives Verified 06/22/18 08:56 venlafaxine Allergy Hives, Verified 06/22/18 08:56 Vomiting ENVIRONMENTAL Allergy Rash Uncoded 06/22/18 08:56 GOLD Allergy TESTED Uncoded 06/22/18 08:56 POSITIVE PMH/Surg Hx/FS Hx/Imm Hx - Additional Past Medical History Additional PMH: PCOD Other History Of: Negative For: Anticoagulant Therapy - Surgical History Surgical History: Yes Surgery Procedure, Year, and Place: TUBAL LIGATION, LEEP, NASAL SURGERY AFTER FX ,EAR TUBES x5. T&A, sinus clearing 07/2014, tonsils grew back they were removed 06/26. LEFT ARM FX RESET 1986. L wrist fx. 4 D&C'S - Family History Known Family History: Positive: Hypertension Family History: denies family hisotry of migraines, neurological disorders - Social History Alcohol Use: None Substance Use Type: Marijuana Smoking Status (MU): Heavy Every Day Tobacco Smoker Type: Cigarettes Amount Used/How Often: 1/2 PPD Length of Time of Smoking/Using Tobacco: started at age 18 Have You Smoked in the Last Year: Yes Household Exposure Type: Cigarettes - Immunization History Most Recent Influenza Vaccination: Not the 2016/2017 Season Most Recent Tetanus Shot: 2012 Review of Systems All Other Systems Reviewed And Are Negative: Yes Constitutional: Positive: Negative Skin: Positive: Negative Eyes: Positive: Negative ENT: Positive: Negative Is Patient Immunocompromised?: No Physical Exam Triage Information Reviewed: Yes Appearance: Well-Appearing, Pain Distress, Obese Vital Signs: Initial Vital Signs Temp 97.1 F 06/22/18 08:58 Pulse 88 06/22/18 08:58 Resp 20 06/22/18 08:58 BP 123/65 06/22/18 08:58 Pulse Ox 100 06/22/18 08:58 Vital Signs Reviewed: Yes Eyes: Positive: Conjunctiva Clear ENT: Positive: Normal ENT inspection, Hearing grossly normal, Pharynx normal Neck: Positive: Supple, Nontender, No Lymphadenopathy Respiratory: Positive: Chest non-tender, Lungs clear, Normal breath sounds Cardiovascular: Positive: RRR, No Murmur, Pulses Normal Musculoskeletal: Positive: Other: - RIGHT KNEE: + SWELLING, NO EFFUSION , + DIFFUSE TENDERNESS, LIMITED EXAM DUE TO SEVERE PAIN Diagnostics - Laboratory Diagnostic Studies Completed/Ordered: xray right knee: IMPRESSION: No fracture of the right knee. Degenerative changes of the patellofemoral. joint. Knee Pain Course/Dx - Differential Dx/Diagnosis Provider Diagnosis: Right knee pain Discharge - Sign-Out/Discharge Documenting (check all that apply): Patient Departure All imaging exams completed and their final reports reviewed: Yes - Discharge Plan Condition: Stable Disposition: HOME Prescriptions: Naproxen [Naproxen 500 mg tab] 500 mg PO BID #20 tablet Patient Education Materials: Swollen Knee Joint (ED), Knee Pain (ED) Referrals: Kyle Torres MD [Primary Care Provider] - Evin Cortez MD [Medical Doctor] - As Soon As Possible - Billing Disposition and Condition Condition: STABLE Disposition: Home
== END 2018-06-22 09:49 | disposition home or self-care (01) ==
LOC: UCCORT 08:48
DX: M25.561 Pain in right knee (principal); F17.210 Nicotine dependence, cigarettes, uncomplicated; Z91.040 Latex allergy status; Z91.09 Other allergy status, other than to drugs and biological substances; Z88.8 Allergy status to other drugs, medicaments and biological substances
CPT/HCPCS: 99212; G0463